=== PATIENT | male | born 1995 | race Two or more races ===

== ENCOUNTER 2025-06-26 12:28 | Inpatient (IN) | payer MEDICAID, OTHER ==
[~2025-06-26] VITALS: Ht 175.3 cm; Wt 82.6 kg
--- NOTE | 2025-06-26 12:37 | ED.PDOC ---
History of Present Illness HPI Comments 37-year-old male came to the ER stating that he has been having nausea vomiting since this morning ever since he smoke marijuana. He does use marijuana daily. He denies any past medical surgical history. He denies use of alcohol. Denies any other symptoms. Chief Complaint: Nausea/Vomiting Time Seen by MD: 12:29 Reviewed Notes: Nurses Notes, Medications, Allergies Allergies: Coded Allergies: NO KNOWN ALLERGIES (Unverified , 06/26/25) Information Source: Patient Mode of Arrival: Wheelchair Severity: Moderate Timing: Hours Duration: Since onset Past Medical History PAST MEDICAL HISTORY: Denies Surgical History: Denies all surgeries Social History Smoker: Non-Smoker Alcohol: Denies ETOH Use Drugs: Marijuana Constitutional: denies: chills, diaphoresis, fatigue, fever, malaise, sweats, weakness, others EENTM: denies: blurred vision, double vision, ear bleeding, ear discharge, ear drainage, ear pain, ear ringing, eye pain, eye redness, hearing loss, mouth pain, mouth swelling, nasal discharge, nose bleeding, nose congestion, nose pain, photophobia, tearing, throat pain, throat swelling, voice changes, others Respiratory: denies: cough, hemoptysis, orthopnea, SOB at rest, shortness of breath, SOB with excertion, stridor, wheezing, others Cardiovascular: denies: chest pain, dizzy spells, diaphoresis, Dyspnea on exertion, edema, irregular heart beat, left arm pain, lightheadedness, palpitations, PND, syncope, others Gastrointestinal: reports: nausea, vomiting; denies: abdomen distended, abdominal pain, blood streaked bowels, constipated, diarrhea, dysphagia, difficulty swallowing, hematemesis, melena, poor appetite, poor fluid intake, rectal bleeding, rectal pain, others Genitourinary: denies: burning, dysuria, flank pain, frequency, hematuria, incontinence, penile discharge, penile sore, pain, testicle pain, testicle s welling, urgency, others Neurological: denies: dizziness, fainting, headache, left sided numbness, left sided weakness, numbness, paresthesia, pre-existing deficit, right sided numbness, right sided weakness, seizure, speech problems, tingling, tremors, weakness, others Musculoskeletal: denies: back pain, gout, joint pain, joint swelling, muscle pain, muscle stiffness, neck pain, others Integumetry: denies: bruises, change in color, change in hair/nails, dryness, laceration, lesions, lumps, rash, wounds, others Allergic/Immunocompromised: denies: Difficulty Healing, Frequent Infections, Hives, Itching, others Hematologic/Lymphatic: denies: anemia, blood clots, easy bleeding, easy bruising, swollen glands, others Endocrine: denies: excessive hunger, excessive sweating, excessive thirst, excessive urination, flushing, intolerance to cold, intolerance to heat, unexplained weight gain, unexplained weight loss, others Psychiatric: denies: anxiety, bipolar disorder, depression, hopeless, panic disorder, schizophrenia, sleepless, suicidal, others Physical Exam General Appearance: Moderate Distress HEENT: Normal ENT Inspection, Pharynx Normal, TMs Normal Neck: Full Range of Motion, Non-Tender, Normal, Normal Inspection Respiratory: Chest Non-Tender, Lungs Clear, No Accessory Muscle Use, No Respiratory Distress, Normal Breath Sounds Cardiovascular: No Edema, No JVD, No Murmur, No Gallop, Normal Peripheral Pulses, Regular Rate/Rhythm Breast Exam: Deferred Gastrointestinal: No Organomegaly, Non Tender, No Pulsatile Mass, Normal Bowel Sounds, Soft Genitalia: Deferred Pelvic: Deferred Rectal: Deferred Extremities: No calf tenderness, Normal capillary refill, Normal inspection, Normal range of motion, Non-tender, No pedal edema Musculoskeletal : Apperance: Normal Neurologic: Alert, farm facility manager II-XII nml as Tested, No Motor Deficits, Normal Affect, Normal Mood, No Sensory Deficits Cerebellar Function: Normal Reflexes: Normal Skin: Dry, Normal Color, Warm Peripheral Pulses: 3+ Radial (R), 3+ Radial (L) Lymphatic: No Adenopathy Was a procedure done? Was a procedure done?: No Differential Dx Considerations may include: Marijuana induced Electrolyte imbalance X-Ray, Labs, Meds, VS Vital Signs Date Time Temp Pulse Resp B/P (MAP) Pulse Ox O2 Delivery O2 Flow Rate FiO2 06/26/25 12:29 97.7 88 24 151/56 98 97.7 Current Medications Medications (Trade) Dose Ordered Sig/Nayan Route Start Time Stop Time Status Last Admin Sodium Chloride 1,000 ml @ 1,000 mls/hr Q1H ONCE IV 06/26/25 12:45 06/26/25 13:44 DC 06/26/25 13:40 Vitals stable. Answering all questions. Marijuana induced. Vitals stable. No leg swelling. Moving all extremities. Pristine neurological exam. Establish intravenous access. Was given fluids. Was given Zofran. Was given morphine. Was given Compazine. Counseled patient on effects of smoking marijuana. Patient had a seizure few hours after being in the ER. Was given Keppra. Continue monitoring. Time of 1ST Reevaluation: 12:35 Reevaluation 1ST: Unchanged Patient Education/Counseling: Diagnosis, Treatment, Prognosis, Need For Follow Up Family Education/Counseling: No Family Present SEPSIS Sepsis Screen Physician Orders Basic Metabolic Panel (06/26/25 12:32) Drug Screen (06/26/25 12:32) Complete Blood Count (06/26/25 14:38) Sodium Chloride 0.9% (06/26/25 14:45) Sodium Chloride 0.9% (06/26/25 14:45) Vital Signs Date Time Temp Pulse Resp B/P (MAP) Pulse Ox O2 Delivery O2 Flow Rate FiO2 06/26/25 12:29 97.7 88 24 151/56 98 97.7 Medications Medications Dose Ordered Sig/Nayan Route Start Time Stop Time Status Last Admin Dose Admin Sodium Chloride 1,000 ml @ 1,000 mls/hr Q1H ONCE IV 06/26/25 12:45 06/26/25 13:44 DC 06/26/25 13:40 Departure 1 Departure Time of Disposition: 12:36 Impression: Primary Impression: Seizure Additional Impression: Cannabis abuse Disposition: 01 HOME / SELF CARE / HOMELESS Condition: Good Discharged With: Self Critical Care Note Critical Care Time?: Yes (90 min-critical care time only) Critical care comment: Had a seizure in the ER Stability Stability form required: No Heart Score Heart Score: Heart Score Response (Comments) Value History N/A 0 EKG N/A 0 Age N/A 0 Risk Factors N/A 0 Troponin N/A 0 Total 0 LU CARCAMO MD Jun 26, 2025 12:37
[2025-06-26] MEDS: SODIUM CHLORIDE 0.9% 1,000 ML IV ONE ×4 (13:40→17:45)
[2025-06-26] MEDS: LORazepam 2MG/ML-1ML VIAL ONE ×2 (14:37→14:42)
[2025-06-26] MEDS: LORazepam 2MG/ML-1ML VIAL IM ONE ×2 (14:42→15:59)
[2025-06-26] MEDS: MIDAZOLAM HCL 5 MG/ML-1ML VIAL IM ONE (15:29)
[2025-06-26] MEDS: MIDAZOLAM HCL 5 MG/ML-1ML VIAL ONE (15:29)
[2025-06-26] MEDS: MORPHINE SULFATE 4 MG/ML SYR/VIAL IV ONE (15:58)
[2025-06-26] MEDS: ONDANSETRON HCL 4 MG/2 ML VIAL IV ONE (15:59)
[2025-06-26] MEDS: levETIRAcetam 1000 mg/100ml 100 ML IV ONE (15:59)
[2025-06-26] MEDS ORDERED: HALOPERIDOL LACTATE 5 MG/ML INJ VIAL IM PRN (17:30)
[2025-06-26 19:03] LABS: Hematocrit 50.3 % (41.0-53.0); Hemoglobin 16.9 g/dL (13.5-17.5); Mean Corpuscular Hemoglobin 30.1 pg (28.0-32.0); Mean Corpuscular Volume 89.8 fL (80.0-100.0); Nucleated Red Blood Cells % 0.1 %
[2025-06-26 19:20] LABS: Potassium 4.1 mmol/L (3.5-5.1); Sodium 142 mmol/L (136-145)
[2025-06-26 19:21] LABS: Anion Gap 12 (5-15); Calcium 9.1 mg/dL (8.7-10.4); Carbon Dioxide 22 mmol/L (20-31)
[2025-06-26 19:26] LABS: BUN/Creatinine Ratio 4.3 (10.0-20.0); Glucose 79 mg/dL (74-106)
[2025-06-26 19:28] LABS: Blood Urea Nitrogen 5 mg/dL (9-23); Chloride 108 mmol/L (98-107)
[2025-06-26 20:24] LABS: Cannabinoid Screen, Urine Pos (NEGATIVE); Opiate Scree,Urine Neg (NEGATIVE)
[2025-06-26 20:26] LABS: Amphetamine Screen, Urine Neg (NEGATIVE); Barbiturate Scree,Urine Neg (NEGATIVE); Benzodiazephine Screen, Urine Pos (NEGATIVE); Cocaine Screen, Urine Neg (NEGATIVE); Phencyclidine Screen, Urine Neg (NEGATIVE)
[2025-06-26 20:27] LABS: Urine Protein, UAD Negative (Negative)
[2025-06-26] MEDS: levETIRAcetam 500 MG TAB PO ONE (21:56)
[2025-06-26] MEDS ORDERED: ONDANSETRON HCL 4 MG/2 ML VIAL IV PRN (22:15)
[2025-06-26] MEDS ORDERED: ACETAMINOPHEN 325 MG TAB PO PRN (22:15)
[2025-06-26] MEDS ORDERED: MORPHINE SULFATE INJ 2 MG/ml SYRG IV PRN ×2 (22:15→23:30)
[2025-06-26] MEDS ORDERED: DOCUSATE SOD 100 MG CAP PO PRN (22:15)
--- NOTE | 2025-06-26 23:28 | DVHHP2 ---
History of Present Illness Reason for Visit: Seizure History of Present Illness The patient is a 37-year-old male with past medical history of seizure who presented to [facility] ED with complaint of seizure. Patient has been having seizure associated with nausea and vomiting, getting worse that prompted this visit. Patient was seen and evaluated in the ED, laboratory data shows WBC 16.5, platelets 301, sodium 142, potassium 4.1, BUN five, creatinine 1.16, glucose 79, calcium 9.1. Head CT results pending. Patient was started on IV Keppra, please see medication orders section in the computer. On my assessment, patient denied chest pain, no headache, no dizziness, no shortness of breath, no nausea, no vomiting, no fever, no chills. Patient was admitted for further evaluation and medical management. Past Medical History Seizure Past Surgical History Denies all surgeries Family History Reviewed, noncontributory to the management of this case. Past Social History Patient lives at home, denies smoking, no alcohol, uses marijuana. Review of Systems Constitutional: Yes: Weakness; No: Fever, Chills, Sweats, Malaise, Other Eyes: No: Pain, Vision change, Conjunctivae inflammation, Eyelid inflammation, Other, Redness ENT: No: Ear pain, Ear discharge, Nose pain, Nose discharge, Nose congestion, Mouth pain, Mouth swelling, Throat pain, Throat swelling, Other Respiratory: No: Cough, Dry, Shortness of breath, SOB with excertion, Wheezing, Hemoptysis, Pleuritic Pain, Sputum, Wheezing, Other Cardiovascular: No: Chest Pain, Palpitations, Orthopnea, Paroxysmal Noc. Dyspnea, Edema, Lt Headedness, Other Gastrointestinal: Nausea, Vomiting; No: Abdominal Pain, Diarrhea, Constipation, Melena, Hematochezia, Other Genitourinary: No Dysuria, No Frequency, No Incontinence, No Hematuria, No R etention, No Other Musculoskeletal: No: other, neck pain, shoulder pain, arm pain, back pain, hand pain, leg pain, foot pain Skin: No: Rash, Lesions, Jaundice, Bruising, Other Neurological: Seizures; No: Weakness, Numbness, Incoordination, Change in speech, Confusion, Other Allergies: Coded Allergies: NO KNOWN ALLERGIES (Unverified , 06/26/25) Medications Current Medications Medications Dose Ordered Sig/Nayan Route Start Time Stop Time Status Last Admin Dose Admin Lorazepam 2 mg Q2HPRN PRN IV 06/26/25 17:30 Haloperidol Lactate 5 mg Q6HPRN PRN IM 06/26/25 17:30 Levetiracetam 100 ml @ 400 mls/hr BID IV 06/27/25 10:00 Sodium Chloride 10 ml Q8HR IV 06/27/25 06:00 Acetaminophen/ Hydrocodone Bitart 1 tab Q4HP PRN PO 06/26/25 22:15 Ondansetron HCl 4 mg Q4HP PRN IV 06/26/25 22:15 Docusate Sodium 100 mg BIDPRN PRN PO 06/26/25 22:15 Acetaminophen 650 mg Q6HP PRN PO 06/26/25 22:15 Morphine Sulfate 2 mg Q4HPRN PRN IV 06/26/25 22:15 Exam Vital Signs Vital Signs Date Time Temp Pulse Resp B/P (MAP) Pulse Ox O2 Delivery O2 Flow Rate FiO2 06/26/25 20:00 97 06/26/25 18:00 13 157/58 (91) 93 06/26/25 13:30 Room Air* 0 21 06/26/25 13:30 97.8 97.8 General Appearance: Alert, Oriented X3, Cooperative, No acute distress HEENT: Atraumatic, PERRLA, EOMI, Mucous membr. moist/pink Respiratory: Clear to auscultation, Normal air movement Cardiovascular: Regular rate, Normal S1, Normal S2, No murmurs Abdominal: Normal bowel sounds, Soft, No tenderness, No hepatospenomegaly, No masses Extremities: No clubbing, No cyanosis, No edema, Normal pulses, No tenderness/swelling Skin: No rashes, No breakdown, No significant lesion Neuro: Normal speech, Normal tone, Sensation intact, Cranial nerves 3-12 NL, Reflexes 2+, Other (Generalized weakness) Psych/Mental Status: Mental status NL, Mood NL Labs/Xrays Labs Test 06/26/25 19:51 06/26/25 18:30 Range/Units Urine Color Colorless Yellow Urine Clarity Clear Clear Urine pH 5.0 5.0-9.0 Urine Specific Glynn 1.007 1.001-1.035 Urine Protein Negative Negative Urine Ketones Negative Negative Urine Blood Negative Negative /uL Urine Nitrite Negative Negative Urine Bilirubin Negative Negative Urine Urobilinogen Normal Negative mg/dL Urine Leukocyte Esterase Negative Negative /uL Urine RBC <1 0 - 3 /hpf Urine Microscopic WBC < 1 0-3 /HPF Urine Squamous Epithelial Cells Few <5 /hpf Urine Bacteria None seen None Seen /hpf Urine Glucose Normal Normal mg/dL Urine Opiates Screen Neg NEGATIVE Urine Fentanyl Screen Neg NEGATIVE Urine Barbiturates Screen Neg NEGATIVE Urine Phencyclidine Screen Neg NEGATIVE Urine Amphetamines Screen Neg NEGATIVE Urine Benzodiazepines Screen Pos NEGATIVE Urine Cocaine Screen Neg NEGATIVE Urine Cannabinoids Screen Pos NEGATIVE White Blood Count 16.5 H 4.4-10.8 10^3/uL Red Blood Count 5.59 4.5-5.90 10^6/uL Hemoglobin 16.9 13.5-17.5 g/dL Hematocrit 50.3 41.0-53.0 % Mean Corpuscular Volume 89.8 80.0-100.0 fL Mean Corpuscular Hemoglobin 30.1 28.0-32.0 pg Mean Corpuscular Hemoglobin Concent 33.5 32.0-36.0 g/dL Red Cell Distribution Width 14.5 H 11.8-14.3 % Platelet Count 301 140-450 10^3/uL Mean Platelet Volume 7.6 6.9-10.8 fL Neutrophils (%) (Auto) 89.9 H 37.0-80.0 % Lymphocytes (%) (Auto) 4.1 L 10.0-50.0 % Monocytes (%) (Auto) 5.5 0.0-12.0 % Eosinophils (%) (Auto) 0.1 0.0-7.0 % Basophils (%) (Auto) 0.4 0.0-2.0 % Neutrophils # (Auto) 14.9 H 1.6-8.6 10 ^3/uL Lymphocytes # (Auto) 0.7 0.4-5.4 10 ^3/uL Monocytes # (Auto) 0.9 0-1.3 10 ^3/uL Eosinophils # (Auto) 0 0-0.8 10 ^3/uL Basophils # (Auto) 0.1 0-0.2 10 ^3/uL Nucleated Red Blood Cells 0.1 % Sodium Level 142 136-145 mmol/L Potassium Level 4.1 3.5-5.1 mmol/L Chloride Level 108 H 98-107 mmol/L Carbon Dioxide Level 22 20-31 mmol/L Anion Gap 12 5-15 Blood Urea Nitrogen 5 L 9-23 mg/dL Creatinine 1.16 0.700-1.30 mg/dL Glomerular Filtration Rate Calc 84 >90 mL/min BUN/Creatinine Ratio 4.3 L 10.0-20.0 Serum Glucose 79 74-106 mg/dL Calcium Level 9.1 8.7-10.4 mg/dL SEPSIS Sepsis Screen Date sepsis recognized/suspect: Jun 26, 2025 Time Sepsis recognized/suspect: 1228 Recent Procedure: No On Antibiotic Therapy: No Respiratory Rate >20: Yes Heart Rate >90: No Temp<36 C (96.8 F) or >38.3 C: No SBP <90 or MAP <65 mmHG: No New Acute Mental Status Change: No Is the patient on CPAP, BIPAP,: No Physician Orders Electrocardigram (06/26/25 15:56) Lorazepam 2mg/Ml Inj (Ativan Inj) (06/26/25 17:30) Haloperidol Lactate Injection (Haldol) (06/26/25 17:30) * Neurology Consult (06/26/25 17:27) Mat Worker (06/26/25 ) Levetiracetam 1000 Mg/100ml (Levetiracet (06/27/25 10:00) Allergies (06/26/25 22:12) Code Status (06/26/25 22:12) Sodium Chloride Lock (Saline Lock Ns) (06/27/25 06:00) Oxygen Per Hour (06/26/25 22:12) Hydrocodone-Acet 5/325mg Tab ([place] 5/32 (06/26/25 22:15) Ondansetron Hcl (Zofran) (06/26/25 22:15) Docusate Sodium Capsule (Colace Capsule) (06/26/25 22:15) Fall Risk Precautions In Place QSHIFT (06/26/25 22:12) Complete Blood Count (06/27/25 04:00) Comprehensive Metabolic Panel (06/27/25 04:00) Cardiac Diet-2gna,Lofat,Lochol (06/27/25 Breakfast) Condition: Serious (06/26/25 22:12) Acetaminophen Tablet (Tylenol Tablet) (06/26/25 22:15) Maintain Bed Rest (06/26/25 22:12) Morphine Sulfate Injection (06/26/25 22:15) Sequential Compression Device (06/26/25 ) Admit (06/26/25 23:27) Nitroglycerin Sublingual (Ntrostat Subli (06/26/25 23:30) Morphine Sulfate Injection (06/26/25 23:30) Vital Signs Date Time Temp Pulse Resp B/P (MAP) Pulse Ox O2 Delivery O2 Flow Rate FiO2 06/26/25 20:00 97 06/26/25 18:00 100 13 157/58 (91) 93 06/26/25 16:28 98 19 134/84 06/26/25 16:00 95 15 134/84 (101) 100 06/26/25 15:58 96 17 134/84 06/26/25 15:56 100 Laboratory Tests Test 06/26/25 18:30 White Blood Count 16.5 10^3/uL (4.4-10.8) H Medications Medications Dose Ordered Sig/Nayan Route Start Time Stop Time Status Last Admin Dose Admin Levetiracetam 100 ml @ 400 mls/hr ONCE ONCE IV 06/26/25 14:45 06/26/25 14:59 DC 06/26/25 15:59 400 MLS/HR Levetiracetam 1,000 mg BID ONCE PO 06/26/25 22:00 06/26/25 22:01 DC 06/26/25 21:56 1,000 MG Lorazepam 2 mg ONCE ONCE IM 06/26/25 14:42 06/26/25 15:36 DC 06/26/25 14:42 2 MG Lorazepam 2 mg ONCE ONCE IM 06/26/25 15:30 06/26/25 15:31 DC 06/26/25 15:59 2 MG Midazolam HCl 5 mg ONCE ONCE IM 06/26/25 15:29 06/26/25 16:03 DC 06/26/25 15:29 5 MG Morphine Sulfate 4 mg ONCE ONCE IV 06/26/25 12:45 06/26/25 12:46 DC 06/26/25 15:58 4 MG Ondansetron HCl 4 mg ONCE ONCE IV 06/26/25 12:45 06/26/25 12:46 DC 06/26/25 15:59 4 MG Sodium Chloride 1,000 ml @ 150 mls/hr Q6H40M ONCE IV 06/26/25 14:45 06/26/25 21:24 DC 06/26/25 17:45 150 MLS/HR Sodium Chloride 1,000 ml @ 1,000 mls/hr Q1H ONCE IV 06/26/25 12:45 06/26/25 13:44 DC 06/26/25 13:40 1,000 MLS/HR Sodium Chloride 1,000 ml @ 1,000 mls/hr Q1H ONCE IV 06/26/25 12:45 06/26/25 13:44 DC 06/26/25 16:01 1,000 MLS/HR Sodium Chloride 1,000 ml @ 1,000 mls/hr Q1H ONCE IV 06/26/25 14:45 06/26/25 15:44 DC 06/26/25 16:00 1,000 MLS/HR Assessment/Plan Assessment/Plan Seizure disorder Cannabis abuse Leukocytosis, unspecified Intractable nausea and vomiting Generalized weakness Plan 1. Admit to telemetry unit 2. Breathing treatment 3. Pain control management 4. IV antibiotic management 5. Management of fluids and electrolytes 6. Consultation for neurology 7. Diagnostic test head CT 8. DVT prophylaxis-on SCDs 9. Repeat labs CBC, CMP in a.m. 10. Home medication reviewed and reconciled 11. Continue with current medical management 12. Treatment plan discussed with patient and RN. Patient verbalized understanding. Plan discussed with: Patient, Other (RN) My Orders Orders - VAHID BRYANT DNP Procedure Category Date Status Time Levetiracetam 1000 PHA 06/27/25 In Process Mg/100ml (Levetiracet 10:00 Allergies MARY 06/26/25 In Process 22:12 Code Status CODE 06/26/25 Transmitted 22:12 Sodium Chloride Lock PHA 06/27/25 In Process (Saline Lock Ns) 06:00 Oxygen Per Hour RT 06/26/25 Transmitted 22:12 Hydrocodone-Acet PHA 06/26/25 In Process 5/325mg Tab ([place] 22:15 Ondansetron Hcl PHA 06/26/25 In Process (Zofran) 22:15 Docusate Sodium PHA 06/26/25 In Process Capsule (Colace 22:15 Fall Risk Precautions MARY 06/26/[address] 22:12 Complete Blood Count LAB 06/27/25 Verified 04:00 Comprehensive LAB 06/27/25 Verified Metabolic Panel 04:00 Cardiac DIET 06/27/25 Transmitted Diet-2gna,Lofat,Lochol Breakfast Condition: Serious MARY 06/26/25 In Process 22:12 Acetaminophen Tablet PHA 06/26/25 In Process (Tylenol Tablet) 22:15 Maintain Bed Rest MARY 06/26/25 In Process 22:12 Morphine Sulfate PHA 06/26/25 In Process Injection 22:15 Sequential MARY 06/26/25 In Process Compression Device Admit ADMIT 06/26/25 Verified 23:27 Nitroglycerin PHA 06/26/25 Verified Sublingual (Ntrostat 23:30 Morphine Sulfate PHA 06/26/25 Verified Injection 23:30 Problem List: (1) Seizure disorder (2) Cannabis abuse (3) Leukocytosis, unspecified (4) Intractable nausea and vomiting (5) Generalized weakness Date of Service: Jun 26, 2025 Billing Provider: VAHID BRYANT DNP Common Visit Codes: [id number] INP/OBS CARE (HIGH) VAHID BRYANT DNP Jun 26, 2025 23:28
[2025-06-26] MEDS ORDERED: NITROGLYCERIN 0.4 MG SL TAB SL PRN (23:30)
[2025-06-27] MEDS: LORazepam 2MG/ML-1ML VIAL IV PRN (04:30)
--- NOTE | 2025-06-27 05:17 | DVH ---
EXAM: CT HEAD WITHOUT CONTRAST INDICATION: Seizure TECHNIQUE: CT of the head without intravenous contrast. Radiation Dose : 1. Head: CT Dose: CTDI volume is 57.21 mGy. Dose-length product is 1127.42 mGy*cm The dose indicators for CT are the volume Computed Tomography (CT) Dose Index (CTDIvol) and the Dose Length Product (DLP), and are measured in units of mGy and mGy-cm, respectively. These indicators are not patient dose, but values generated from the CT scanner acquisition factors. The report includes radiation exposure data for exposures received during this examination. COMPARISON: None FINDINGS: There is no evidence of acute intracranial hemorrhage, extra-axial collection, mass effect, midline s hift, herniation or hydrocephalus. The ventricles, sulci and cisterns are age appropriate. The desouza-white differentiation is intact. The visualized paranasal sinuses are clear. Minimal partial opacification of lateral left mastoid air cells. Right mastoid air cells are clear. The surrounding soft tissues and osseous structures are unremarkable. IMPRESSION: 1. No acute intracranial abnormality. 2. Minimal partial opacification of lateral left mastoid air cells. Radiation optimization: All CT scans at this facility use at least one of these dose optimization cat hniques: automated exposure control mA and/or kV adjustment per patient size (includes targeted exam s where dose is matched to clinical indication) or iterative reconstruction.
[2025-06-27] MEDS: SODIUM CHLOR 0.9% PF (SALINE LOCK) 10ML VIAL/SYR IV SCH (07:02)
[2025-06-27 07:50] VITALS: PULSE 91; RESP 18; O2SAT 96
[2025-06-27] MEDS ORDERED: DEXTROSE (50%) 50ML SYRG IV PRN (08:00)
[2025-06-27] MEDS: HYDROcodone-ACET 5/325MG TAB PO PRN (10:11)
[2025-06-27] MEDS: levETIRAcetam 1000 mg/100ml 100 ML IV SCH (10:11)
[2025-06-27] MEDS ORDERED: VANCOMYCIN PER PHARMACY 0 MG IV SCH (12:00)
[2025-06-27 13:20] VITALS: PULSE 96; RESP 16; O2SAT 96
[2025-06-27] MEDS: cefTRIAXone 1GM/50ML D5W 50 ML IV ONE (13:27)
[2025-06-27] MEDS: ACCU-CHEK COMFORT CURVE STRIP VI SCH (13:39)
[2025-06-27] MEDS: InsuLIN REG 1unit/0.01ml Soln (100units/ml) SC SCH (13:40)
[2025-06-27] MEDS: VANCOMYCIN 1GM/250ML IV SCH (14:30)
[2025-06-27 16:02] VITALS: BP 140/91; PULSE 91; RESP 19; TEMP 98.3; O2SAT 98
[2025-06-27 16:10] VITALS: BP 140/91; PULSE 91; RESP 19; TEMP 98.3; O2SAT 98
--- NOTE | 2025-06-27 16:46 | DVHPNRES ---
Progress Note Date Seen: Jun 27, 2025 Resident Creating Document: JOSE HERNANDEZ RESIDENT Has the PT tested + for MRSA If YES, has PT been informed?: No Medical Necessity Reason Pt with a Central, PICC or Fol: No Objective vital signs Vital Sign Date Time Temp Pulse Resp B/P (MAP) Pulse Ox O2 Delivery O2 Flow Rate FiO2 06/27/25 14:00 96 16 102/63 (76) 99 06/27/25 13:20 Room Air* 0 21 06/27/25 09:00 97.7 97.7 Total Intake and Output 06/26/25 06/26/25 06/27/25 15:00 23:00 07:00 Intake Total 1000 ml 2100 ml 1000 ml Balance 1000 ml 2100 ml 1000 ml medications Current Medications Medications Dose Ordered Sig/Nayan Route Start Time Stop Time Status Last Admin Dose Admin Lorazepam 2 mg Q2HPRN PRN IV 06/26/25 17:30 06/27/25 04:30 2 MG Haloperidol Lactate 5 mg Q6HPRN PRN IM 06/26/25 17:30 Levetiracetam 100 ml @ 400 mls/hr BID IV 06/27/25 10:00 06/27/25 10:11 400 MLS/HR Sodium Chloride 10 ml Q8HR IV 06/27/25 06:00 06/27/25 14:04 10 ML Acetaminophen/ Hydrocodone Bitart 1 tab Q4HP PRN PO 06/26/25 22:15 06/27/25 10:11 1 TAB Ondansetron HCl 4 mg Q4HP PRN IV 06/26/25 22:15 Docusate Sodium 100 mg BIDPRN PRN PO 06/26/25 22:15 Acetaminophen 650 mg Q6HP PRN PO 06/26/25 22:15 Morphine Sulfate 2 mg Q4HPRN PRN IV 06/26/25 22:15 Nitroglycerin 0.4 mg Q5MINP PRN SL 06/26/25 23:30 Morphine Sulfate 2 mg Q30M PRN IV 06/26/25 23:30 Diagnostic Test (Pha) 1 strip ACHS 06/27/25 11:30 06/27/25 13:39 1 STRIP Insulin Human Regular ACHS SC 06/27/25 11:30 Dextrose 50 ml UD PRN IV 06/27/25 08:00 Vancomycin HCl 0 ml @ 0 mls/hr UD IV 06/27/25 12:00 Ceftriaxone Sodium 50 ml @ 100 mls/hr DAILY@09 IV 06/28/25 09:00 laboratory and microbiology Laboratory Tests 06/26/25 18:30 Test 06/26/25 18:30 Range/Units Serum Glucose 79 74-106 mg/dL My Orders My Orders Orders - JOSE HERNANDEZ RESIDENT Procedure Category Date Status Time Lactic Acid W/ Reflex LAB 06/27/25 Transmitted Order 16:36 Creatine Kinase LAB 06/27/25 Transmitted 16:36 Levetiracetam (Keppra) LAB 06/27/25 Transmitted 16:36 Calcitriol(125 Di-Oh LAB 06/27/25 Transmitted Vit D) 16:36 Vitamin B12 LAB 06/27/25 Transmitted 16:36 Thyroid Stimulating LAB 06/27/25 Transmitted Hormone 16:36 PTPTT LAB 06/27/25 Transmitted 16:36 Magnesium LAB 06/27/25 Transmitted 16:36 Hemoglobin A1c LAB 06/27/25 Transmitted 16:36 Lipid Panel LAB 06/27/25 Transmitted 16:36 Hepatic Panel LAB 06/27/25 Transmitted 16:36 JOSE HERNANDEZ RESIDENT Jun 27, 2025 16:46
--- NOTE | 2025-06-27 17:01 | DVHPNRES ---
Progress Note Date Seen: Jun 27, 2025 Resident Creating Document: JOSE HERNANDEZ RESIDENT Has the PT tested + for MRSA If YES, has PT been informed?: No Medical Necessity Reason Pt with a Central, PICC or Fol: No Subjective Review of Systems Patient is a 37-year-old male with past medical history of epilepsy who presented to the ED with chief complaints of seizure, patient has had a seizure with nausea and vomiting before getting admitted and had 2 episodes of seizure in the hospital. Patient was started on IV Keppra and given Ativan which stopped the seizure. Patient was confused after the seizure and did not know where he was but was oriented to person. Surgical history: Denies Personal history: vapes, smokes marijuana, states he had drug use 2 months ago 06/27 Patient seen in the ER. He is alert to person, time, but not to place, was confused after seizure, patient denies any vomiting, nausea, dizziness, headaches, diarrhea, constipation, chest pain, shortness of breath. Patient denies any neck stiffness, is placed in isolation for ruling out meningitis. Radiology was consulted for possible lumbar puncture. The vancomycin was started. Head CT showed No acute intracranial abnormality. neuro checks q.4 hours. surgery was consulted, pending. Constitutional: Denies weight loss, fever and chills. HEENT: Denies changes in vision and hearing. Respiratory: Denies shortness of breath and cough Cardiovascular: Denies chest discomfort or palpitations GI: Mild abdominal distention, reports improvement on abdominal discomfort. : Denies dysuria and urinary frequency. Musculoskeletal: Denies myalgias and joint pain Skin: Denies rash and pruritus. Neurological: Denies dizziness, headache, vision or hearing problems Objective vital signs Vital Sign Date Time Temp Pulse Resp B/P (MAP) Pulse Ox O2 Delivery O2 Flow Rate FiO2 06/27/25 14:00 96 16 102/63 (76) 99 06/27/25 13:20 Room Air* 0 21 06/27/25 09:00 97.7 97.7 Total Intake and Output 06/26/25 06/26/25 06/27/25 15:00 23:00 07:00 Intake Total 1000 ml 2100 ml 1000 ml Balance 1000 ml 2100 ml 1000 ml medications Current Medications Medications Dose Ordered Sig/Nayan Route Start Time Stop Time Status Last Admin Dose Admin Lorazepam 2 mg Q2HPRN PRN IV 06/26/25 17:30 06/27/25 04:30 2 MG Haloperidol Lactate 5 mg Q6HPRN PRN IM 06/26/25 17:30 Levetiracetam 100 ml @ 400 mls/hr BID IV 06/27/25 10:00 06/27/25 10:11 400 MLS/HR Sodium Chloride 10 ml Q8HR IV 06/27/25 06:00 06/27/25 14:04 10 ML Acetaminophen/ Hydrocodone Bitart 1 tab Q4HP PRN PO 06/26/25 22:15 06/27/25 10:11 1 TAB Ondansetron HCl 4 mg Q4HP PRN IV 06/26/25 22:15 Docusate Sodium 100 mg BIDPRN PRN PO 06/26/25 22:15 Acetaminophen 650 mg Q6HP PRN PO 06/26/25 22:15 Morphine Sulfate 2 mg Q4HPRN PRN IV 06/26/25 22:15 Nitroglycerin 0.4 mg Q5MINP PRN SL 06/26/25 23:30 Morphine Sulfate 2 mg Q30M PRN IV 06/26/25 23:30 Diagnostic Test (Pha) 1 strip ACHS 06/27/25 11:30 06/27/25 13:39 1 STRIP Insulin Human Regular ACHS SC 06/27/25 11:30 Dextrose 50 ml UD PRN IV 06/27/25 08:00 Vancomycin HCl 0 ml @ 0 mls/hr UD IV 06/27/25 12:00 Ceftriaxone Sodium 50 ml @ 100 mls/hr DAILY@09 IV 06/28/25 09:00 Examination General: Patient alert and oriented in person,time, not place. Patient following commands. HEENT: Normocephalic, atraumatic, moist mucous membranes Respiratory/pulmonary: Clear lungs bilaterally, vesicular murmurs present in almost all lung cage, no associated crackles or wheezes. Cardiovascular: Normal heart sounds S1 and S2 with no associated murmurs Abdomen: Abdomen nondistended, there is no pain to palpation in any of the abdominal quadrants, no palpable masses. Extremities: There is no peripheral edema present at the lower extremities. Peripheral Pulses: 3+ Radial (R). 3+ Radial (L). 3+ Dorsalis pedis (R). 3+ Dorsalis pedis(L) Skin: No rashes or pruritus, there is no sacral edema present at this time. Neurological: Intact cranial nerves with no focal neurologic deficits, laboratory and microbiology Laboratory Tests 06/26/25 18:30 Test 06/26/25 18:30 Range/Units Serum Glucose 79 74-106 mg/dL Labs and/or images reviewed: Labs reviewed by me, Image(s) reviewed by me Problem List/Assessment/Plan Problem List/Assessment/Plan # Seizure X 2 episodes # history of epileptic disorder # SIRS due to Acute Seizures # ALOC due to Postictal state # rule out metabolic causes # rule out meningitis # suspected noncompliance - head CT showed no acute intracranial pathology - neurology consulted, pending - IR was consulted for possible lumbar puncture - Keppra levels were unable to check because given stat in ED - Ativan 2 mg - Keppra b.i.d. IV - droplet precautions, isolation of patient done - neuro checks q.4 - vancomycin IV - Ceftriaxone IV # Rhabdomyolysis - given fluids 125 NS - repeat CK in the morning # polysubstance abuse disorder -patient counseled on cessation of marijuana, vaping for 13 minutes Goals of care addressed with the patient for more than 27 minutes: Full code status Case discussed with Dr. Hill , patient and nurse if seizure free for 48 hours possible discharge tomorrow Plan discussed with: Patient My Orders My Orders Orders - JOSE HERNANDEZ Procedure Category Date Status Time Lactic Acid W/ Reflex LAB 06/27/25 Transmitted Order 16:36 Creatine Kinase LAB 06/27/25 Transmitted 16:36 Levetiracetam (Keppra) LAB 06/27/25 Transmitted 16:36 Calcitriol(125 Di-Oh LAB 06/27/25 Transmitted Vit D) 16:36 Vitamin B12 LAB 06/27/25 Transmitted 16:36 Thyroid Stimulating LAB 06/27/25 Transmitted Hormone 16:36 PTPTT LAB 06/27/25 Transmitted 16:36 Magnesium LAB 06/27/25 Transmitted 16:36 Hemoglobin A1c LAB 06/27/25 Transmitted 16:36 Lipid Panel LAB 06/27/25 Transmitted 16:36 Hepatic Panel LAB 06/27/25 Transmitted 16:36 Date of Service: Jun 27, 2025 Billing Provider: AIMEE DE LA ROSA MD Common Visit Codes: [id number] INP/OBS CARE(HIGH) SRIRAMJOSE [place] Jun 27, 2025 17:01 AIMEE DE LA ROSA MD Jun 29, 2025 17:01
[2025-06-27] MEDS ORDERED: PHEN1CAP38 PO (18:27)
[2025-06-27] MEDS ORDERED: LEVE500T40 PO (18:27)
[2025-06-27 18:39] LABS: Alanine Aminotransferase 24.0 U/L (7-40); Alkaline Phosphatase 52.0 U/L (46-116); Bilirubin, Direct 0.2 mg/dL (<0.3); Bilirubin, Total 0.6 mg/dL (0.2-1.0); Cholesterol 133.0 mg/dL (< 200); HDL Cholesterol 46.0 mg/dL (40-59); Magnesium 2.4 mg/dL (1.6-2.6); Total Protein 7.1 g/dL (5.7-8.2); Triglycerides 82.0 mg/dL (< 150)
[2025-06-27 18:49] LABS: Albumin 4.8 g/dL (3.2-4.8)
[2025-06-27 18:51] LABS: Creatine Kinase IFCC 1809.0 U/L (46-171)
[2025-06-27 19:04] LABS: INR 1.03 (0.9-1.15); Partial Thromboplastin Time 26.2 SEC (24.5-34.5); Prothrombin Time 10.9 sec (9.3-11.8)
[2025-06-27] MEDS: SODIUM CHLORIDE 0.9% 1,000 ML IV ONE (19:58)
[2025-06-27 20:00] VITALS: PULSE 94
[2025-06-27 21:00] VITALS: BP 134/83; PULSE 91; RESP 18; TEMP 98.6; O2SAT 98
[2025-06-28 01:00] VITALS: BP 125/86; PULSE 86; RESP 18; TEMP 97.9; O2SAT 95
[2025-06-28 05:00] VITALS: BP 106/51; PULSE 85; RESP 16; TEMP 97.9; O2SAT 95
[2025-06-28 07:50] LABS: Hematocrit 45.8 % (41.0-53.0); Hemoglobin 15.6 g/dL (13.5-17.5); Mean Corpuscular Hemoglobin 30.5 pg (28.0-32.0); Mean Corpuscular Volume 89.4 fL (80.0-100.0); Nucleated Red Blood Cells % 0.1 %
[2025-06-28 08:00] VITALS: PULSE 79
[2025-06-28 08:10] VITALS: BP 132/81; PULSE 93; RESP 18; TEMP 98.4; O2SAT 98
[2025-06-28 08:21] LABS: Alanine Aminotransferase 31 U/L (7-40); Albumin 4.8 g/dL (3.2-4.8); Alkaline Phosphatase 48 U/L (46-116); Anion Gap 10 (5-15); BUN/Creatinine Ratio 5.2 (10.0-20.0); Calcium 9.4 mg/dL (8.7-10.4); Carbon Dioxide 26 mmol/L (20-31); Chloride 106 mmol/L (98-107); Glucose 82 mg/dL (74-106); Potassium 3.8 mmol/L (3.5-5.1); Sodium 142 mmol/L (136-145); Total Protein 6.8 g/dL (5.7-8.2)
[2025-06-28 08:22] LABS: Bilirubin, Total 0.7 mg/dL (0.2-1.0)
[2025-06-28 08:38] LABS: Blood Urea Nitrogen 6 mg/dL (9-23); Creatine Kinase IFCC 1461 U/L (46-171)
[2025-06-28] MEDS: cefTRIAXone 1GM/50ML D5W 50 ML IV SCH (09:00)
--- NOTE | 2025-06-28 13:47 | DVHDSRES ---
Discharge Summary Date of Admission Resident Creating Document: JOSE HERNANDEZ Jun 26, 2025 at 23:27 Date of Discharge: Jun 28, 2025 Admitting Diagnosis # Seizure X 2 episodes Labs/Diagnostic Data: Laboratory Results Test 06/28/25 06:51 06/28/25 06:27 06/27/25 20:59 06/27/25 18:28 White Blood Count 6.5 10^3/uL (4.4-10.8) Red Blood Count 5.12 10^6/uL (4.5-5.90) Hemoglobin 15.6 g/dL (13.5-17.5) Hematocrit 45.8 % (41.0-53.0) Mean Corpuscular Volume 89.4 fL (80.0-100.0) Mean Corpuscular Hemoglobin 30.5 pg (28.0-32.0) Mean Corpuscular Hemoglobin Concent 34.1 g/dL (32.0-36.0) Red Cell Distribution Width 14.1 % (11.8-14.3) Platelet Count 271 10^3/uL (140-450) Mean Platelet Volume 7.8 fL (6.9-10.8) Neutrophils (%) (Auto) 61.8 % (37.0-80.0) Lymphocytes (%) (Auto) 27.8 % (10.0-50.0) Monocytes (%) (Auto) 9.7 % (0.0-12.0) Eosinophils (%) (Auto) 0.2 % (0.0-7.0) Basophils (%) (Auto) 0.5 % (0.0-2.0) Neutrophils # (Auto) 4.0 10 ^3/uL (1.6-8.6) Lymphocytes # (Auto) 1.8 10 ^3/uL (0.4-5.4) Monocytes # (Auto) 0.6 10 ^3/uL (0-1.3) Eosinophils # (Auto) 0 10 ^3/uL (0-0.8) Basophils # (Auto) 0 10 ^3/uL (0-0.2) Nucleated Red Blood Cells 0.1 % Sodium Level 142 mmol/L (136-145) Potassium Level 3.8 mmol/L (3.5-5.1) Chloride Level 106 mmol/L (98-107) Carbon Dioxide Level 26 mmol/L (20-31) Anion Gap 10 (5-15) Blood Urea Nitrogen 6 mg/dL (9-23) Creatinine 1.15 mg/dL (0.700-1.30) Glomerular Filtration Rate Calc 88 mL/min (>90) BUN/Creatinine Ratio 5.2 (10.0-20.0) Serum Glucose 82 mg/dL (74-106) Calcium Level 9.4 mg/dL (8.7-10.4) Total Bilirubin 0.7 mg/dL (0.2-1.0) Aspartate Amino Transferase (AST) 57 U/L (13-40) Alanine Aminotransferase (ALT) 31 U/L (7-40) Alkaline Phosphatase 48 U/L (46-116) Creatine Kinase 1461 U/L (46-171) Total Protein 6.8 g/dL (5.7-8.2) Albumin 4.8 g/dL (3.2-4.8) Vancomycin Level Trough 4.4 ug/mL (5-10) POC Glucose 87 mg/dl (70-106) Prothrombin Time 10.9 sec (9.3-11.8) Prothrombin Time INR 1.03 (0.9-1.15) Activated Partial Thromboplast Time 26.2 SEC (24.5-34.5) Hemoglobin A1c 5.1 % A1C (<5.7) Lactic Acid Level 1.5 mmol/L (0.4-2.0) Vitamin B12 Level 428 pg/mL (211-911) Free Thyroxine (T4) Calculated 1.14 ng/dL (0.89-1.76) Test 06/27/25 18:00 06/27/25 13:15 06/26/25 19:51 Magnesium Level 2.4 mg/dL (1.6-2.6) Direct Bilirubin 0.2 mg/dL (<0.3) Triglycerides Level 82 mg/dL (< 150) Cholesterol Level 133 mg/dL (< 200) LDL Cholesterol 74 mg/dL (< 100) HDL Cholesterol 46 mg/dL (40-59) Thyroid Stimulating Hormone (TSH) 4.95 uIU/mL (0.55-4.78) Plasma/Serum Blood Alcohol < 3.0 mg/dL (<10) Urine Color Colorless (Yellow) Urine Clarity Clear (Clear) Urine pH 5.0 (5.0-9.0) Urine Specific [place] 1.007 (1.001-1.035) Urine Protein Negative (Negative) Urine Ketones Negative (Negative) Urine Blood Negative /uL (Negative) Urine Nitrite Negative (Negative) Urine Bilirubin Negative (Negative) Urine Urobilinogen Normal mg/dL (Negative) Urine Leukocyte Esterase Negative /uL (Negative) Urine RBC <1 /hpf (0 - 3) Urine Microscopic WBC < 1 /HPF (0-3) Urine Squamous Epithelial Cells Few /hpf (<5) Urine Bacteria None seen /hpf (None Seen) Urine Glucose Normal mg/dL (Normal) Urine Opiates Screen Neg (NEGATIVE) Urine Fentanyl Screen Neg (NEGATIVE) Urine Barbiturates Screen Neg (NEGATIVE) Urine Phencyclidine Screen Neg (NEGATIVE) Urine Amphetamines Screen Neg (NEGATIVE) Urine Benzodiazepines Screen Pos (NEGATIVE) Urine Cocaine Screen Neg (NEGATIVE) Urine Cannabinoids Screen Pos (NEGATIVE) Other Laboratory Tests 06/28/25 06:51 Brief Hx & Hospital Course: Patient is a 37-year-old male with past medical history of epilepsy who presented to the ED with chief complaints of seizure, patient has had a seizure with nausea and vomiting before getting admitted and had 2 episodes of seizure in the hospital. Patient was started on IV Keppra and given Ativan which stopped the seizure. Patient was confused after the seizure and did not know where he was but was oriented to person. Surgical history: Denies Personal history: vapes, smokes marijuana, states he had drug use 2 months ago brief hospital course: Patient came to the hospital with chief complaints of 2 episodes of seizure as he had a history of epileptic disorder, ALOC due to postictal state, head CT showed no acute intracranial pathology, Neurology was consulted. IR was consulted for possible lumbar puncture. Keppra levels were unable to be checked because of stat given in the ID patient was given Ativan 2 mg, Keppra b.i.d. IV, patient was kept in isolation and droplet precautions were done. Patient was on neuro checks q.4 hours. Patient was started on vancomycin, ceftriaxone IV for possible meningitis. Patient had rhabdomyolysis as his CK levels were high and was given fluids. Patient had polysubstance abuse disorder for which was counseled on cessation of marijuana, vaping for over 13 minutes. The next morning CK levels were repeated and were still high due to unsafe discharge patient was counseled to stay in the hospital for further management but he wanted to leave AMA. Patient was counseled on the risks of leaving AMA, he communicated understanding of the possible risks and still wanted to leave. Patient signed the AMA form and has left. He was counseled on returning to the nearest ED for any worsening of his symptoms are further seizure episodes. Operations or Procedures ORDERING PHYSICIAN: VAHID BRYANT DNP PROCEDURE(s): HWOCT - HEAD WITHOUT CONTRAST REASON: Seizure ORDER NUMBER(s): [id number], ACCESSION NUMBER(s): [id number] EXAM: CT HEAD WITHOUT CONTRAST INDICATION: Seizure TECHNIQUE: CT of the head without intravenous contrast. Radiation Dose : 1. Head: CT Dose: CTDI volume is 57.21 mGy. Dose-length product is 1127.42 mGy*cm The dose indicators for CT are the volume Computed Tomography (CT) Dose Index (CTDIvol) and the Dose Length Product (DLP), and are measured in units of mGy and mGy-cm, respectively. These indicators are not patient dose, but values generated from the CT scanner acquisition factors. The report includes radiation exposure data for exposures received during this examination. COMPARISON: None FINDINGS: There is no evidence of acute intracranial hemorrhage, extra-axial collection, mass effect, midline shift, herniation or hydrocephalus. The ventricles, sulci and cisterns are age appropriate. The desouza-white differentiation is intact. The visualized paranasal sinuses are clear. Minimal partial opacification of lateral left mastoid air cells. Right mastoid air cells are clear. The surrounding soft tissues and osseous structures are unremarkable. IMPRESSION: 1. No acute intracranial abnormality. 2. Minimal partial opacification of lateral left mastoid air cells. Radiation optimization: All CT scans at this facility use at least one of these dose optimization techniques: automated exposure control mA and/or kV adjustment per patient size (includes targeted exams where dose is matched to clinical indication) or iterative reconstruction. ATED BY: HOMERO STACK MD DICTATED DATE/TIME: 06/27/25513 SIGNED BY: HOMERO STACK MD SIGNED DATE/TIME: 06/27/25513 Condition at Discharge: Undetermined Final Diagnosis/Problems List # Seizure X 2 episodes # history of epileptic disorder # Rhabdomyolysis # SIRS due to Acute Seizures # ALOC due to Postictal state # ruled out metabolic causes # ruled out meningitis # suspected noncompliance # polysubstance abuse disorder Discharge Disposition: AMA Discharge Instruct/Medications Scheduled Levetiracetam (Keppra), 500 MG PO TID, (Reported) Phenytoin Sodium (Dilantin Capsule), 100 MG PO DAILY, (Reported) Discharge Statement: "Patient was advised to return to the ER or call 911 if any headaches, dizziness, shortness of breath, chest pain, abdominal pain, bleeding, fevers, or worsening of medical condition. Patient was counseled about treatment plan, medications, possible side effects, patientverbalized understanding. All questions were answered to the best of my ability. This discharge took greater then 30 minutes in planning, reviewing documentation, counseling the patient, and discussing with other team members." ASSESSMENT ASSESSMENT Assessment Date of Service: Jun 28, 2025 Billing Provider: NAIF MARK MD Common Visit Codes: 09113-DXL/OBS DISCH DAY >30min JOSE HERNANDEZ RESIDENT Jun 28, 2025 13:47 NAIF MARK MD Jun 29, 2025 21:13
--- NOTE | 2025-06-30 08:17 | ECG ---
[facility] Test Date: 2025-06-26 Test Time: 15:56:21 Pat Name: EWELINA ALCARAZ Department: [facility] ED Patient ID: [facility]-[id number] Room: 0238T A Gender: M [employer] Manager: PATSY SUMMERSB: 1995 Requested By: LU CARCAMO Order Number: [id number] Reading MD: Alberto Mackenzie Measurements Intervals [place] Rate: 100 P: 66 VA: 135 QRS: -17 QRSD: 85 T: 66 QT: 304 QTc: 392 Interpretive Statements Sinus tachycardia Borderline left axis deviation RSR' in V1 or V2, right VCD or RVH Electronically Signed On 07-01-2025 14:26:49 PDT by Alberto Mackenzie Please click the below link to view image of tracing.
== END 2025-06-28 11:15 | disposition left against medical advice (07) | DRG 53 ==
LOC: ER 12:28 → OVERFLOW 23:27 → EDBD 23:27 → TELE-EAST 06-27 15:50
PROVIDERS: ADMIT Student in an Organized Health Care Education/Training Program; ATTEND Emergency Medicine
DX: G40.409 Other generalized epilepsy and epileptic syndromes, not intractable, without status epilepticus (principal); M62.82 Rhabdomyolysis; R65.10 Systemic inflammatory response syndrome (SIRS) of non-infectious origin without acute organ dysfunction; F12.10 Cannabis abuse, uncomplicated; F19.10 Other psychoactive substance abuse, uncomplicated; D72.829 Elevated white blood cell count, unspecified; Z91.199 Patient's noncompliance with other medical treatment and regimen due to unspecified reason; Z53.29 Procedure and treatment not carried out because of patient's decision for other reasons
CPT/HCPCS: 36415; 70450; 80048; 80053; 80061; 80076; 80202; 80307; 80320; 81001; 82542; 82550; 82607; 82652; 82962; 83036; 83605; 83735; 84439; 84443; 85025; 85610; 85730; 87040; 93005; 96361; 96372; 96374; 96375; 99291; G0378; J2250; J2405

== ENCOUNTER 2025-07-09 20:59 | Inpatient (IN) | payer MEDICAID ==
[~2025-07-09] VITALS: Ht 177.8 cm; Wt 81.8 kg
[~2025-07-09 20:59] MED LIST: LEVE500T40 PO; PHEN1CAP38 PO
[2025-07-09] MEDS: LORazepam 2MG/ML-1ML VIAL IV ONE (21:13)
--- NOTE | 2025-07-09 21:21 | ED.PDOC ---
HPI (NEURO) HPI Comments 30 year old male presents to the ED with a chief complaint of seizure onset today. Patient was dropped off by unknown individual who states patient experienced multiple seizure episodes. Patient was discharged from [facility] on 06/28/25, was admitted due to seizures. Patient presented post-ictal. During assessment, patient experienced another seizure episode. No other symptoms or modifying factors present at this time. Chief Complaint: Seizure Time Seen by MD: 21:05 Reviewed Notes: Medications, Allergies Information Source: Patient Mode of Arrival: Ambulatory Severity: Moderate Timing: Hours Duration: Since onset Prehospital treatment: None Seizure Quality: Tonic-clonic Seizure Location: Generalized Onset: At rest Circumstances: Spontaneous Before: Normal History of: Seizure Disorder Past Medical History PAST MEDICAL HISTORY: Seizures Surgical History: Denies all surgeries Social History Smoker: Non-Smoker Alcohol: Denies ETOH Use Drugs: Marijuana Constitutional: denies: chills, diaphoresis, fatigue, fever, malaise, sweats, weakness, others EENTM: denies: blurred vision, double vision, ear bleeding, ear discharge, ear drainage, ear pain, ear ringing, eye pain, eye redness, hearing loss, mouth pain, mouth swelling, nasal discharge, nose bleeding, nose congestion, nose pain, photophobia, tearing, throat pain, throat swelling, voice changes, others Respiratory: denies: cough, hemoptysis, orthopnea, SOB at rest, shortness of breath, SOB with excertion, stridor, wheezing, others Cardiovascular: denies: chest pain, dizzy spells, diaphoresis, Dyspnea on exertion, edema, irregular heart beat, left arm pain, lightheadedness, palpitations, PND, syncope, others Gastrointestinal: denies: abdomen distended, abdominal pain, blood streaked bowels, constipated, diarrhea, dysphagia, difficulty swallowing, hematemesis, melena, nausea, poor appetite, poor fluid intake, rectal bleeding, rectal pain, vomiting, others Genitourinary: denies: burning, dysuria, flank pain, frequency, hematuria, incontinence, penile discharge, penile sore, pain, testicle pain, testicle swelling, urgency, others Neurological: reports: seizure; denies: dizziness, fainting, headache, left sided numbness, left sided weakness, numbness, paresthesia, pre-existing deficit, right sided numbness, right sided weakness, speech problems, tingling, tremors, weakness, others Musculoskeletal: denies: back pain, gout, joint pain, joint swelling, muscle pain, muscle stiffness, neck pain, others Integumetry: denies: bruises, change in color, change in hair/nails, dryness, laceration, lesions, lumps, rash, wounds, others Allergic/Immunocompromised: denies: Difficulty Healing, Frequent Infections, Hives, Itching, others Hematologic/Lymphatic: denies: anemia, blood clots, easy bleeding, easy bruising, swollen glands, others Endocrine: denies: excessive hunger, excessive sweating, excessive thirst, excessive urination, flushing, intolerance to cold, intolerance to heat, unexplained weight gain, unexplained weight loss, others Psychiatric: denies: anxiety, bipolar disorder, depression, hopeless, panic disorder, schizophrenia, sleepless, suicidal, others All Other Systems: Reviewed and Negative Physical Exam General Appearance: No Apparent Distress, Normal HEENT: Normal ENT Inspection, Pharynx Normal, TMs Normal Neck: Full Range of Motion, Non-Tender, Normal, Normal Inspection Respiratory: Chest Non-Tender, Lungs Clear, No Accessory Muscle Use, No Respiratory Distress, Normal Breath Sounds Cardiovascular: No Edema, No JVD, No Murmur, No Gallop, Normal Peripheral Pulses, Regular Rate/Rhythm Breast Exam: Deferred Gastrointestinal: No Organomegaly, Non Tender, No Pulsatile Mass, Normal Bowel Sounds, Soft Genitalia: Deferred Pelvic: Deferred Rectal: Deferred Extremities: No calf tenderness, Normal capillary refill, Normal inspection, Normal range of motion, Non-tender, No pedal edema Musculoskeletal : Apperance: Normal Neurologic: Alert, [employer] II-XII nml as Tested, No Motor Deficits, Normal Affect, Normal Mood, No Sensory Deficits Cerebellar Function: Normal Reflexes: Normal Skin: Dry, Normal Color, Warm Lymphatic: No Adenopathy Was a procedure done? Was a procedure done?: No Differential Diagnosis (SZ) Seizure: Hyperventilation, Psychogenic Seizure, Alcohol Withdrawl, Anticonvulsant Withdrawl, Closed Head Injury, CVA/TIA, Drug Ingestion, Hyponatremia, Mass Lesion, Encephalopathy, Epilepsy-Break Through, Epilepsy- Status, Other X-Ray, Labs, Meds, VS Vital Signs Date Time Temp Pulse Resp B/P (MAP) Pulse Ox O2 Delivery O2 Flow Rate FiO2 07/09/25 23:16 97.7 110 17 136/83 (100) 93 97.7 07/09/25 23:16 20 Room Air* 0 21 07/09/25 22:17 19 Nasal Cannula* 2 28 07/09/25 22:00 110 17 124/72 (89) 95 07/09/25 21:42 98 13 142/71 (94) 95 07/09/25 21:23 100 07/09/25 21:00 98.5 100 20 132/86 95 98.5 Lab Test 07/09/25 23:00 07/09/25 21:37 Range/Units Urine Opiates Screen Pending Urine Fentanyl Screen Pending Urine Barbiturates Screen Pending Urine Phencyclidine Screen Pending Urine Amphetamines Screen Pending Urine Benzodiazepines Screen Pending Urine Cocaine Screen Pending Urine Cannabinoids Screen Pending White Blood Count 21.0 H 4.4-10.8 10^3/uL Red Blood Count 5.73 4.5-5.90 10^6/uL Hemoglobin 17.2 13.5-17.5 g/dL Hematocrit 52.9 41.0-53.0 % Mean Corpuscular Volume 92.4 80.0-100.0 fL Mean Corpuscular Hemoglobin 30.0 28.0-32.0 pg Mean Corpuscular Hemoglobin Concent 32.5 32.0-36.0 g/dL Red Cell Distribution Width 14.8 H 11.8-14.3 % Platelet Count 354 140-450 10^3/uL Mean Platelet Volume 8.4 6.9-10.8 fL Neutrophils (%) (Auto) 85.7 H 37.0-80.0 % Lymphocytes (%) (Auto) 7.7 L 10.0-50.0 % Monocytes (%) (Auto) 6.2 0.0-12.0 % Eosinophils (%) (Auto) 0.1 0.0-7.0 % Basophils (%) (Auto) 0.3 0.0-2.0 % Neutrophils # (Auto) 18.0 H 1.6-8.6 10 ^3/uL Lymphocytes # (Auto) 1.6 0.4-5.4 10 ^3/uL Monocytes # (Auto) 1.3 0-1.3 10 ^3/uL Eosinophils # (Auto) 0 0-0.8 10 ^3/uL Basophils # (Auto) 0.1 0-0.2 10 ^3/uL Nucleated Red Blood Cells 0.3 % Sodium Level 140 136-145 mmol/L Potassium Level 3.7 3.5-5.1 mmol/L Chloride Level 98 98-107 mmol/L Carbon Dioxide Level 11 L 20-31 mmol/L Anion Gap 31 H 5-15 Blood Urea Nitrogen 10 9-23 mg/dL Creatinine 1.73 H 0.700-1.30 mg/dL Glomerular Filtration Rate Calc 54 >90 mL/min BUN/Creatinine Ratio 5.8 L 10.0-20.0 Serum Glucose 195 H 74-106 mg/dL Calcium Level 10.0 8.7-10.4 mg/dL Magnesium Level 2.9 H 1.6-2.6 mg/dL Total Bilirubin 0.3 0.2-1.0 mg/dL Aspartate Amino Transferase (AST) 43 H 13-40 U/L Alanine Aminotransferase (ALT) 50 H 7-40 U/L Alkaline Phosphatase 66 46-116 U/L Total Protein 8.8 H 5.7-8.2 g/dL Albumin 5.6 H 3.2-4.8 g/dL Plasma/Serum Blood Alcohol < 3.0 <10 mg/dL Current Medications Medications (Trade) Dose Ordered Sig/Nayan Route Start Time Stop Time Status Last Admin Sodium Chloride 1,000 ml @ 1,000 mls/hr Q1H ONCE IVB 07/09/25 21:30 07/09/25 22:29 DC 07/09/25 21:36 Levetiracetam 100 ml @ 400 mls/hr ONCE ONCE IV 07/09/25 21:30 07/09/25 21:44 DC 07/09/25 21:35 Lorazepam (Ativan Inj) 2 mg ONCE ONCE IV 07/09/25 21:30 07/09/25 21:31 DC 07/09/25 21:13 Levetiracetam 100 ml @ 400 mls/hr ONCE ONCE IV 07/09/25 21:30 07/09/25 21:44 DC 07/09/25 21:30 Time of 1ST Reevaluation: 21:35 Reevaluation 1ST: Unchanged Patient Education/Counseling: Diagnosis, Treatment Family Education/Counseling: No Family Present Departure 1 Departure Time of Disposition: 23:51 Impression: Primary Impression: Seizure disorder Additional Impressions: Intractable seizures Acute renal injury Hyperglycemia Disposition: ADMITTED INPATIENT Condition: Guarded Comments 30-year-old male with a history of seizure disorder now presents after he had 2- 3 seizures at home back to back. Patient had a seizure shortly after arrival to the emergency department that lasted about a minute. It was tonic-clonic generalized. It resolved spontaneously. Patient had postictal phase afterwards. On lab review white blood cell count is high at 21. Acute renal injury with creatinine high at 1.73. Hyperglycemia 195. Patient was given Ativan and Keppra IV. Patient was given IV fluids. Patient will need to be admitted for supportive care and further workup. Critical Care Note Critical Care Time?: Yes (35 min-critical care time only) Critical care comment: Total critical care time: Approximately 36 minutes Due to a high probability of clinically significant, life threatening deterioration, the patient required my highest level of preparedness to intervene emergently and I personally spent this critical care time directly and personally managing the patient. This critical care time included obtaining a history; examining the patient; pulse oximetry; ordering and review of studies; arranging urgent treatment with development of a management plan; evaluation of patient's response to treatment; frequent reassessment; and, discussions with other providers. This critical care time was performed to assess and manage the high probability of imminent, life-threatening deterioration that could result in multi-organ failure. It was exclusive of separately billable procedures and treating other patients. Stability Stability form required: No Heart Score Heart Score: Heart Score Response (Comments) Value History N/A 0 EKG N/A 0 Age N/A 0 Risk Factors N/A 0 Troponin N/A 0 Total 0 I personally scribed for CHANDRIKA COYNE MD ([email or web address]) on 07/09/25 at 21:21. Electronically submitted by Kailey Davis ([email or web address]). CHANDRIKA COYNE MD Jul 09, 2025 21:21
[2025-07-09] MEDS: levETIRAcetam 1000 mg/100ml 100 ML IV ONE ×2 (21:30→21:35)
[2025-07-09] MEDS: LORazepam 2MG/ML-1ML VIAL ONE (21:35)
[2025-07-09] MEDS: SODIUM CHLORIDE 0.9% 1,000 ML IVB ONE (21:36)
[2025-07-09 21:49] LABS: Hematocrit 52.9 % (41.0-53.0); Hemoglobin 17.2 g/dL (13.5-17.5); Mean Corpuscular Hemoglobin 30.0 pg (28.0-32.0); Mean Corpuscular Volume 92.4 fL (80.0-100.0); Nucleated Red Blood Cells % 0.3 %
[2025-07-09 22:06] LABS: Alkaline Phosphatase 66 U/L (46-116); Anion Gap 31 (5-15); BUN/Creatinine Ratio 5.8 (10.0-20.0); Blood Urea Nitrogen 10 mg/dL (9-23); Calcium 10.0 mg/dL (8.7-10.4); Carbon Dioxide 11 mmol/L (20-31); Chloride 98 mmol/L (98-107); Glucose 195 mg/dL (74-106); Potassium 3.7 mmol/L (3.5-5.1); Sodium 140 mmol/L (136-145)
[2025-07-09 22:07] LABS: Alanine Aminotransferase 50 U/L (7-40); Albumin 5.6 g/dL (3.2-4.8); Bilirubin, Total 0.3 mg/dL (0.2-1.0); Magnesium 2.9 mg/dL (1.6-2.6); Total Protein 8.8 g/dL (5.7-8.2)
[2025-07-09 22:17] VITALS: RESP 19
[2025-07-09 23:16] VITALS: RESP 20
--- NOTE | 2025-07-09 23:36 | DVH ---
CLINICAL HISTORY: intractable seizures TECHNIQUE: Helical imaging carried out from skull base to vertex without intravenous contrast. This e xam was performed according to our departmental dose optimization program. Up-to-date CT equipment an d radiation dose reduction techniques are utilized as appropriate. 63.47 CTDIVol: 63.47 mGy DLP: 1.71 mGy-cm WID: COMPARISON: CT HEAD WITHOUT CONTRAST on DOS: 06/27/25 FINDINGS: The ventricles and subarachnoid spaces are normal in size and configuration. There is no midline cris ft or mass effect. The desouza white matter interfaces are maintained. The basal cisterns are patent. Th ere is no evidence of acute intracranial hemorrhage or extra-axial fluid collection. The mastoid air cells and visualized paranasal sinuses are well-aerated. IMPRESSION: 1. No acute intracranial abnormality.
[2025-07-09 23:53] LABS: Cannabinoid Screen, Urine Pos (NEGATIVE)
[2025-07-09 23:59] LABS: Barbiturate Scree,Urine Neg (NEGATIVE); Opiate Scree,Urine Neg (NEGATIVE); Phencyclidine Screen, Urine Neg (NEGATIVE)
[2025-07-10] LABS: Amphetamine Screen, Urine Neg (NEGATIVE); Benzodiazephine Screen, Urine Neg (NEGATIVE); Cocaine Screen, Urine Neg (NEGATIVE)
[2025-07-10] MEDS ORDERED: LORazepam 2MG/ML-1ML VIAL IV PRN (01:00)
[2025-07-10] MEDS ORDERED: ACETAMINOPHEN 325 MG TAB PO PRN (01:00)
[2025-07-10] MEDS ORDERED: ONDANSETRON HCL 4 MG/2 ML VIAL IV PRN (01:00)
--- NOTE | 2025-07-10 04:14 | DVHHP2 ---
History of Present Illness Reason for Visit: Seizure History of Present Illness 30-year-old male presents for evaluation of seizure activity. Patient resides at a [facility] where he lives witnessed to to have multiple seizures today. Patient is currently awake and alert but refusing to answer any questions. No further history could be obtained at the moment. Past Medical History Seizure Past Surgical History None Family History Noncontributory Smoke: No ALCOHOL: none Drugs: Marijuana Review of Systems Review of Systems Review of systems are currently negative otherwise addressed in HPI. Allergies: Coded Allergies: NO KNOWN ALLERGIES (Unverified , 06/26/25) Medications Current Medications Medications Dose Ordered Sig/Nayan Route Start Time Stop Time Status Last Admin Dose Admin Levetiracetam 1,000 mg BID PO 07/10/25 10:00 Phenytoin Sodium 100 mg Q12HR PO 07/10/25 10:00 Ondansetron HCl 4 mg Q4HP PRN IV 07/10/25 01:00 Acetaminophen 650 mg Q6HP PRN PO 07/10/25 01:00 Lorazepam 1 mg Q5MINP PRN IV 07/10/25 01:00 Exam Vital Signs Vital Signs Date Time Temp Pulse Resp B/P (MAP) Pulse Ox O2 Delivery O2 Flow Rate FiO2 07/10/25 04:00 97.6 109 14 133/76 (95) 97 97.6 07/09/25 23:16 Room Air* 0 21 Exam Gen: 30-year-old male in no apparent distress Skin: Warm, dry, normal color and texture, no rash. HEENT: Normocephalic atraumatic, mucous membranes moist and pink. Neck: Cervical and supraclavicular nodes normal without enlargement, trachea is midline, thyroid gland is normal without masses. Pulmonary: Clear to auscultation and percussion bilaterally. Cardiac: Regular rate and rhythm. No murmur Abdomen: Soft, nontender, nondistended, bowel sounds present all 4 quadrants, no guarding, no rigidity, no organomegaly. Extremities: No cyanosis, clubbing, no edema Neuro: Cranial nerves II through XII grossly intact, normal affect and speech, no focal motor deficits. Labs/Xrays ORDERING PHYSICIAN: CHANDRIKA COYNE MD PROCEDURE(s): HWOCT - HEAD WITHOUT CONTRAST REASON: intractable seizures ORDER NUMBER(s): [id number], ACCESSION NUMBER(s): [id number] CLINICAL HISTORY: intractable seizures TECHNIQUE: Helical imaging carried out from skull base to vertex without intravenous contrast. This exam was performed according to our departmental dose optimization program. Up-to-date CT equipment and radiation dose reduction techniques are utilized as appropriate. 63.47 CTDIVol: 63.47 mGy DLP: 1.71 mGy-cm WID: COMPARISON: CT HEAD WITHOUT CONTRAST on DOS: 06/27/25 FINDINGS: The ventricles and subarachnoid spaces are normal in size and configuration. There is no midline shift or mass effect. The desouza white matter interfaces are maintained. The basal cisterns are patent. There is no evidence of acute intracranial hemorrhage or extra-axial fluid collection. The mastoid air cells and visualized paranasal sinuses are well-aerated. IMPRESSION: 1. No acute intracranial abnormality. Labs Test 07/09/25 23:00 07/09/25 21:37 Range/Units Urine Opiates Screen Neg NEGATIVE Urine Fentanyl Screen Neg NEGATIVE Urine Barbiturates Screen Neg NEGATIVE Urine Phencyclidine Screen Neg NEGATIVE Urine Amphetamines Screen Neg NEGATIVE Urine Benzodiazepines Screen Neg NEGATIVE Urine Cocaine Screen Neg NEGATIVE Urine Cannabinoids Screen Pos NEGATIVE White Blood Count 21.0 H 4.4-10.8 10^3/uL Red Blood Count 5.73 4.5-5.90 10^6/uL Hemoglobin 17.2 13.5-17.5 g/dL Hematocrit 52.9 41.0-53.0 % Mean Corpuscular Volume 92.4 80.0-100.0 fL Mean Corpuscular Hemoglobin 30.0 28.0-32.0 pg Mean Corpuscular Hemoglobin Concent 32.5 32.0-36.0 g/dL Red Cell Distribution Width 14.8 H 11.8-14.3 % Platelet Count 354 140-450 10^3/uL Mean Platelet Volume 8.4 6.9-10.8 fL Neutrophils (%) (Auto) 85.7 H 37.0-80.0 % Lymphocytes (%) (Auto) 7.7 L 10.0-50.0 % Monocytes (%) (Auto) 6.2 0.0-12.0 % Eosinophils (%) (Auto) 0.1 0.0-7.0 % Basophils (%) (Auto) 0.3 0.0-2.0 % Neutrophils # (Auto) 18.0 H 1.6-8.6 10 ^3/uL Lymphocytes # (Auto) 1.6 0.4-5.4 10 ^3/uL Monocytes # (Auto) 1.3 0-1.3 10 ^3/uL Eosinophils # (Auto) 0 0-0.8 10 ^3/uL Basophils # (Auto) 0.1 0-0.2 10 ^3/uL Nucleated Red Blood Cells 0.3 % Sodium Level 140 136-145 mmol/L Potassium Level 3.7 3.5-5.1 mmol/L Chloride Level 98 98-107 mmol/L Carbon Dioxide Level 11 L 20-31 mmol/L Anion Gap 31 H 5-15 Blood Urea Nitrogen 10 9-23 mg/dL Creatinine 1.73 H 0.700-1.30 mg/dL Glomerular Filtration Rate Calc 54 >90 mL/min BUN/Creatinine Ratio 5.8 L 10.0-20.0 Serum Glucose 195 H 74-106 mg/dL Calcium Level 10.0 8.7-10.4 mg/dL Magnesium Level 2.9 H 1.6-2.6 mg/dL Total Bilirubin 0.3 0.2-1.0 mg/dL Aspartate Amino Transferase (AST) 43 H 13-40 U/L Alanine Aminotransferase (ALT) 50 H 7-40 U/L Alkaline Phosphatase 66 46-116 U/L Total Protein 8.8 H 5.7-8.2 g/dL Albumin 5.6 H 3.2-4.8 g/dL Phenytoin (Dilantin) Level < 2.0 L 10-20 ug/mL Plasma/Serum Blood Alcohol < 3.0 <10 mg/dL SEPSIS Sepsis Screen Date sepsis recognized/suspect: Jul 09, 2025 Time Sepsis recognized/suspect: 2327 Recent Procedure: No On Antibiotic Therapy: No Respiratory Rate >20: No Heart Rate >90: Yes Temp<36 C (96.8 F) or >38.3 C: No SBP <90 or MAP <65 mmHG: No New Acute Mental Status Change: Yes Is the patient on CPAP, BIPAP,: No Physician Orders Heplock Iv (07/09/25 21:18) Seizure Precautions (07/09/25 21:18) Head Without Contrast (07/09/25 21:18) Electrocardigram (07/09/25 22:32) * Neurology Consult (07/10/25 00:49) Seizure Precautions In Place (07/10/25 00:49) Complete Blood Count (07/10/25 04:00) Basic Metabolic Panel (07/10/25 04:00) Levetiracetam Tablet (Keppra Tablet) (07/10/25 10:00) Phenytoin Capsule (Dilantin Capsule) (07/10/25 10:00) Admit (07/10/25 00:49) Ondansetron Hcl (Zofran) (07/10/25 01:00) Condition: Stable (07/10/25 00:49) Acetaminophen Tablet (Tylenol Tablet) (07/10/25 01:00) Bedrest With Bathroom Privileg (07/10/25 00:49) Regular Diet (07/10/25 Breakfast) Lorazepam 2mg/Ml Inj (Ativan Inj) (07/10/25 01:00) Vital Signs Date Time Temp Pulse Resp B/P (MAP) Pulse Ox O2 Delivery O2 Flow Rate FiO2 07/10/25 04:00 97.6 109 14 133/76 (95) 97 97.6 07/10/25 03:00 97.6 105 18 134/85 (101) 96 97.6 07/10/25 01:00 97.6 109 19 153/97 (115) 97 97.6 07/09/25 23:16 97.7 110 17 136/83 (100) 93 97.7 07/09/25 23:16 20 Room Air* 0 21 07/09/25 22:17 19 Nasal Cannula* 2 28 07/09/25 22:00 110 17 124/72 (89) 95 07/09/25 21:42 98 13 142/71 (94) 95 07/09/25 21:23 100 07/09/25 21:00 98.5 100 20 132/86 95 98.5 Laboratory Tests Test 07/09/25 21:37 White Blood Count 21.0 10^3/uL (4.4-10.8) H Medications Medications Dose Ordered Sig/Nayan Route Start Time Stop Time Status Last Admin Dose Admin Levetiracetam 100 ml @ 400 mls/hr ONCE ONCE IV 07/09/25 21:30 07/09/25 21:44 DC 07/09/25 21:30 400 MLS/HR Levetiracetam 100 ml @ 400 mls/hr ONCE ONCE IV 07/09/25 21:30 07/09/25 21:44 DC 07/09/25 21:35 400 MLS/HR Lorazepam 2 mg ONCE ONCE IV 07/09/25 21:30 07/09/25 21:31 DC 07/09/25 21:13 2 MG Sodium Chloride 1,000 ml @ 1,000 mls/hr Q1H ONCE IVB 07/09/25 21:30 07/09/25 22:29 DC 07/09/25 21:36 1,000 MLS/HR Assessment/Plan Assessment/Plan Assessment Breakthrough seizure Acute kidney injury Leukocytosis,? Reactive Plan Admit the patient to Med surge to the hospitalist Seizure precautions in place Resume home medications Nephrology consultation Continue treatment per orders. Plan discussed with: Patient My Orders Orders - MARCIAL CERNA Procedure Category Date Status Time * Neurology Consult CONS 07/10/25 Transmitted 00:49 Seizure Precautions MARY 07/10/[address] 00:49 Complete Blood Count LAB 07/10/25 Logged 04:00 Basic Metabolic Panel LAB 07/10/25 Logged 04:00 Levetiracetam Tablet PHA 07/10/25 In Process (Keppra Tablet) 10:00 Phenytoin Capsule PHA 07/10/25 In Process (Dilantin Capsule) 10:00 Admit ADMIT 07/10/25 Transmitted 00:49 Ondansetron Hcl PHA 07/10/25 In Process (Zofran) 01:00 Condition: Stable MARY 07/10/25 In Process 00:49 Acetaminophen Tablet PHA 07/10/25 In Process (Tylenol Tablet) 01:00 Bedrest With Bathroom MARY 07/10/25 In Process Privileg 00:49 Regular Diet DIET 07/10/25 Transmitted Breakfast Lorazepam 2mg/Ml Inj PHA 07/10/25 In Process (Ativan Inj) 01:00 Date of Service: Jul 10, 2025 Billing Provider: MARCIAL CERNA Common Visit Codes: [id number] INP/OBS CARE (MOD) MARCIAL CERNA Jul 10, 2025 04:14
[2025-07-10 07:22] LABS: Hematocrit 44.8 % (41.0-53.0); Hemoglobin 15.5 g/dL (13.5-17.5); Mean Corpuscular Hemoglobin 30.3 pg (28.0-32.0); Mean Corpuscular Volume 87.8 fL (80.0-100.0); Nucleated Red Blood Cells % 0.1 %
[2025-07-10 07:28] LABS: Chloride 101 mmol/L (98-107); Sodium 138 mmol/L (136-145)
[2025-07-10 07:29] LABS: Anion Gap 12 (5-15); Calcium 9.3 mg/dL (8.7-10.4); Carbon Dioxide 25 mmol/L (20-31)
[2025-07-10 07:30] VITALS: PULSE 97; RESP 13; O2SAT 97
[2025-07-10 07:31] LABS: Potassium 3.4 mmol/L (3.5-5.1)
[2025-07-10 07:34] LABS: BUN/Creatinine Ratio 9.2 (10.0-20.0); Blood Urea Nitrogen 11 mg/dL (9-23); Glucose 116 mg/dL (74-106)
[2025-07-10 08:00] VITALS: TEMP 99
--- NOTE | 2025-07-10 09:29 | DVHINCON2 ---
Date of service: Jul 10, 2025 Referring Physician Shekhar Reason for Consultation Seizure History of Present Illness Mr. Marcum is a 30 years old right-handed gentleman with a history of seizure disorder, he was dropped off by somebody to the [facility] ER on 07/09/2025 because he had multiple seizures. At this time, he is awake, oriented x3, but is not a good historian. He tells me he was at his own apartment, but the next memory was waking up in the emergency room confused, he did not have biting to his tongue/mouth, or inco ntinence He reports a seizure disorder since chang high, with complete amnesia about his symptoms, he remembers people said he had grand mal seizure, and he remembers has been biting to his tongue and incontinence during the event, he does not know how often he has seizures, he does not remember his family doctor's name, he claimed he had a specialist for his seizure but he does not remember the doctor's name, he tells me he is on Keppra 500 mg t.i.d., lamotrigine 100 mg b.i.d. (later he said 200 mg b.i.d.), Depakote one piece b.i.d. According to the External medication history, he should be on: Depakote 500 mg b.i.d., lamotrigine 200 mg b.i.d., Keppra 1000 mg b.i.d. During our conversation about his seizure medication treatment, he mentioned the best medication for his seizure was Keppra, but he wants to take all of them UDS, 07/09/2025: Cannabinoids Plasma alcohol, 07/09/2025: < three Dilantin, 07/09/2025: <2 WBC/HB/PLT/MCV, 07/10/25: 13.2/15.5/268/87.8 HCO3, 07/09/2025: 11, 07/10/2020 5:25 a.m. TBI/AST/ALT/AP, 07/09/2025: 0.3/43/50/66 CT head, 07/09/2025: No acute intracranial abnormality Past Medical History Seizures Past Surgical History No major surgeries Family History He does not remember major medical problem in the family Social History He smokes tobacco, THC marijuana, but no history of drug/alcohol abuse Allergies: Coded Allergies: NO KNOWN ALLERGIES (Unverified , 06/26/25) Home Meds Reported Medications Phenytoin Sodium (DILANTIN CAPSULE) 100 Mg Cp, 100 MG PO DAILY, CAP 06/27/25 Levetiracetam (Keppra) 500 Mg Tab, 500 MG PO TID for 30 Days, MG 06/27/25 Current Medications Current Medications Medications (Trade) Dose Ordered Sig/Nayan Route PRN Reason Start Time Stop Time Status Last Admin Levetiracetam (Keppra Tablet) 1,000 mg BID PO 07/10/25 10:00 Phenytoin Sodium (Dilantin Capsule) 100 mg Q12HR PO 07/10/25 10:00 Ondansetron HCl (Zofran) 4 mg Q4HP PRN IV NAUSEA / VOMITING 07/10/25 01:00 Acetaminophen (Tylenol Tablet) 650 mg Q6HP PRN PO PAIN SCALE 1-3 OR TEMP>100.4 07/10/25 01:00 Lorazepam (Ativan Inj) 1 mg Q5MINP PRN IV SEIZURES 07/10/25 01:00 Review of Systems As above, the other systems are negative Vital Signs Vital Signs Date Time Temp Pulse Resp B/P (MAP) Pulse Ox O2 Delivery O2 Flow Rate FiO2 07/10/25 08:00 101 07/10/25 08:00 99.0 17 122/73 (89) 95 99.0 07/10/25 07:30 Room Air* 0 21 Physical Exam GENERAL EXAM: General: the patient is well developed and nourished. No acute distress. HEENT: Normocephalic, neck is supple, no carotid bruits. No mass. RESPIRATORY: Normal respiratory effort with symmetrical lung expansion. Lungs clear to auscultation. CARDIOVASCULAR: Regular rate and rhythm with no murmurs. S1, S2. ABDOMEN: Soft, nontender, normal bowel sound NEUROLOGICAL: MENTAL STATUS: Awake and alert. Oriented to person, place, time , historian SPEECH, LANGUAGE, HIGHER CORTICAL FUNCTION: no aphasia or dysathria. CRANIAL NERVES: #2: Intact visual cage to confrontation. The optic discs were sharp. #3,4,6: Pupils are equal, round and reactive. EOMs full and conjugate. Mild bilateral gaze evoked nystagmus. #5: Facial sensation intact in all three divisions bilaterally. Mandibular strength intact. #7: Facial muscles symmetrical and strength intact. #8: Hearing grossly normal to voice. #9,10: Uvula and soft palate rise in the midline. Swallow and voice are normal. #11: Trapezius and sternomastoid strength intact bilaterally. #12: Tongue midline. No fasciculations or atrophy. SENSATION: Sensation to touch and pinprick is normal. MOTOR: Normal tone in the upper and lower extremity. Normal muscle bulk. No fasciculations. No abnormal movements or posturing. Muscle strength of the major groups in the upper extremities is 5/5. Muscle strength of the major groups in the lower extremities is 5/5. REFLEXES: Deep tendon reflexes normal and symmetrical. No pathological reflexes. CEREBELLAR/COORDINATION: Finger to nose and heel to cagle are normal bilaterally. GAIT/STATION: deferred. Labs/Diagnostic Data Labs Test 07/10/25 07:00 07/09/25 23:00 07/09/25 21:37 Range/Units White Blood Count 13.2 #H 4.4-10.8 10^3/uL Red Blood Count 5.11 4.5-5.90 10^6/uL Hemoglobin 15.5 13.5-17.5 g/dL Hematocrit 44.8 # 41.0-53.0 % Mean Corpuscular Volume 87.8 # 80.0-100.0 fL Mean Corpuscular Hemoglobin 30.3 28.0-32.0 pg Mean Corpuscular Hemoglobin Concent 34.5 32.0-36.0 g/dL Red Cell Distribution Width 14.5 H 11.8-14.3 % Platelet Count 268 140-450 10^3/uL Mean Platelet Volume 8.0 6.9-10.8 fL Neutrophils (%) (Auto) 80.0 37.0-80.0 % Lymphocytes (%) (Auto) 11.6 10.0-50.0 % Monocytes (%) (Auto) 7.3 0.0-12.0 % Eosinophils (%) (Auto) 0.1 0.0-7.0 % Basophils (%) (Auto) 1.0 0.0-2.0 % Neutrophils # (Auto) 10.5 H 1.6-8.6 10 ^3/uL Lymphocytes # (Auto) 1.5 0.4-5.4 10 ^3/uL Monocytes # (Auto) 1.0 0-1.3 10 ^3/uL Eosinophils # (Auto) 0 0-0.8 10 ^3/uL Basophils # (Auto) 0.1 0-0.2 10 ^3/uL Nucleated Red Blood Cells 0.1 % Sodium Level 138 136-145 mmol/L Potassium Level 3.4 L 3.5-5.1 mmol/L Chloride Level 101 98-107 mmol/L Carbon Dioxide Level 25 # 20-31 mmol/L Anion Gap 12 5-15 Blood Urea Nitrogen 11 9-23 mg/dL Creatinine 1.19 0.700-1.30 mg/dL Glomerular Filtration Rate Calc 85 >90 mL/min BUN/Creatinine Ratio 9.2 L 10.0-20.0 Serum Glucose 116 H 74-106 mg/dL Calcium Level 9.3 8.7-10.4 mg/dL Urine Opiates Screen Neg NEGATIVE Urine Fentanyl Screen Neg NEGATIVE Urine Barbiturates Screen Neg NEGATIVE Urine Phencyclidine Screen Neg NEGATIVE Urine Amphetamines Screen Neg NEGATIVE Urine Benzodiazepines Screen Neg NEGATIVE Urine Cocaine Screen Neg NEGATIVE Urine Cannabinoids Screen Pos NEGATIVE Magnesium Level 2.9 H 1.6-2.6 mg/dL Total Bilirubin 0.3 0.2-1.0 mg/dL Aspartate Amino Transferase (AST) 43 H 13-40 U/L Alanine Aminotransferase (ALT) 50 H 7-40 U/L Alkaline Phosphatase 66 46-116 U/L Total Protein 8.8 H 5.7-8.2 g/dL Albumin 5.6 H 3.2-4.8 g/dL Phenytoin (Dilantin) Level < 2.0 L 10-20 ug/mL Plasma/Serum Blood Alcohol < 3.0 <10 mg/dL Assessment Status epileptics Grand mal seizure I suspect poor compliance Plan/Recommendation Monitoring Supportive treatment Telemetry Ativan for seizure breakthrough Keppra 750 mg b.i.d. Lamotrigine 200 mg b.i.d. Depakote 500 mg b.i.d. Seizure triggers discussed Prognosis: Poor This medical document was created using an electronic medical record system with [employer] dictation system. Although this document has been carefully reviewed, there may still be some phonetic and typographical errors. These areas are purely typographical due to imperfections of the software programs, and do not reflect any compromise in the patient's medical care. Plan discussed with: Patient, Other RAMÓN ROSALES MD Jul 10, 2025 09:29
[2025-07-10] MEDS: PHENYTOIN SODIUM 100 MG CAP PO SCH (10:15)
[2025-07-10] MEDS: levETIRAcetam 500 MG TAB PO SCH (10:15)
[2025-07-10 11:00] VITALS: BP 112/71; PULSE 103; RESP 17; O2SAT 96
--- NOTE | 2025-07-10 11:44 | DVHDS2 ---
Discharge Summary Date of Admission Jul 10, 2025 at 00:49 Date of Discharge: Jul 10, 2025 Admitting Diagnosis Breakthrough seizure Acute kidney injury Leukocytosis,? Reactive Labs/Diagnostic Data: Laboratory Results Test 07/10/25 07:00 07/09/25 23:00 07/09/25 21:37 White Blood Count 13.2 10^3/uL (4.4-10.8) Red Blood Count 5.11 10^6/uL (4.5-5.90) Hemoglobin 15.5 g/dL (13.5-17.5) Hematocrit 44.8 % (41.0-53.0) Mean Corpuscular Volume 87.8 fL (80.0-100.0) Mean Corpuscular Hemoglobin 30.3 pg (28.0-32.0) Mean Corpuscular Hemoglobin Concent 34.5 g/dL (32.0-36.0) Red Cell Distribution Width 14.5 % (11.8-14.3) Platelet Count 268 10^3/uL (140-450) Mean Platelet Volume 8.0 fL (6.9-10.8) Neutrophils (%) (Auto) 80.0 % (37.0-80.0) Lymphocytes (%) (Auto) 11.6 % (10.0-50.0) Monocytes (%) (Auto) 7.3 % (0.0-12.0) Eosinophils (%) (Auto) 0.1 % (0.0-7.0) Basophils (%) (Auto) 1.0 % (0.0-2.0) Neutrophils # (Auto) 10.5 10 ^3/uL (1.6-8.6) Lymphocytes # (Auto) 1.5 10 ^3/uL (0.4-5.4) Monocytes # (Auto) 1.0 10 ^3/uL (0-1.3) Eosinophils # (Auto) 0 10 ^3/uL (0-0.8) Basophils # (Auto) 0.1 10 ^3/uL (0-0.2) Nucleated Red Blood Cells 0.1 % Sodium Level 138 mmol/L (136-145) Potassium Level 3.4 mmol/L (3.5-5.1) Chloride Level 101 mmol/L (98-107) Carbon Dioxide Level 25 mmol/L (20-31) Anion Gap 12 (5-15) Blood Urea Nitrogen 11 mg/dL (9-23) Creatinine 1.19 mg/dL (0.700-1.30) Glomerular Filtration Rate Calc 85 mL/min (>90) BUN/Creatinine Ratio 9.2 (10.0-20.0) Serum Glucose 116 mg/dL (74-106) Calcium Level 9.3 mg/dL (8.7-10.4) Urine Opiates Screen Neg (NEGATIVE) Urine Fentanyl Screen Neg (NEGATIVE) Urine Barbiturates Screen Neg (NEGATIVE) Urine Phencyclidine Screen Neg (NEGATIVE) Urine Amphetamines Screen Neg (NEGATIVE) Urine Benzodiazepines Screen Neg (NEGATIVE) Urine Cocaine Screen Neg (NEGATIVE) Urine Cannabinoids Screen Pos (NEGATIVE) Magnesium Level 2.9 mg/dL (1.6-2.6) Total Bilirubin 0.3 mg/dL (0.2-1.0) Aspartate Amino Transferase (AST) 43 U/L (13-40) Alanine Aminotransferase (ALT) 50 U/L (7-40) Alkaline Phosphatase 66 U/L (46-116) Total Protein 8.8 g/dL (5.7-8.2) Albumin 5.6 g/dL (3.2-4.8) Phenytoin (Dilantin) Level < 2.0 ug/mL (10-20) Plasma/Serum Blood Alcohol < 3.0 mg/dL (<10) Other Laboratory Tests 07/10/25 07:00 Brief Hx & Hospital Course: This is a 30 years old male with past medical history of seizure who had multiple seizure today at the [facility]. The patient had witnessed multiple seizure. The patient was admitted. The patient was put on Keppra 500 mg IV b.i.d.. The patient was put in Ativan as needed for active seizing. While waiting for more evaluation and observation regarding to seizure activity the patient adamant that he wanted to leave against medical advice. The patient was educated about seizure without controlled can cause brain damage and even but he still wanted to leave against medical advice. Physical exam: HEENT: Normocephalic atraumatic pupils equal react to light and accommodation. Extraocular muscles intact, conjunctiva pink, oropharynx moist, no thrush, no exudate. Lymphatic: No lymphadenopathy Cardiovascular exam: S1, S2 was heard. No murmurs, rubs, gallops Lung: Clear on auscultation bilaterally, no wheeze, rale, rhonchi. GI: Abdominal soft, nondistended, nontenderness, positive bowel sounds. Extremity: No crepitus, cyanosis, edema. Pedal pulses present bilateral. Full range of motion. Skin: Normal turgor, no rash. Psych: Alert, oriented x3. Neurology: No focal deficits, cranial nerve II to XII grossly intact. This medical document was created using an electronic medical record system with [employer] direct computerized dictation system. Although this document has been carefully reviewed, there may still be some phonetic and typographical errors. These areas are purely typographical due to imperfections of the software programs, and do not reflect any compromise in the patient's medical care. Condition at Discharge: Guarded Final Diagnosis/Problems List Breakthrough seizure Acute kidney injury Leukocytosis,? Reactive Discharge Disposition: AMA Discharge Instruct/Medications Scheduled Levetiracetam (Keppra), 500 MG PO TID, (Reported) Phenytoin Sodium (Dilantin Capsule), 100 MG PO DAILY, (Reported) Discharge Statement: "Patient was advised to return to the ER or call 911 if any headaches, dizziness, shortness of breath, chest pain, abdominal pain, bleeding, fevers, or worsening of medical condition. Patient was counseled about treatment plan, medications, possible side effects, patientverbalized understanding. All questions were answered to the best of my ability. This discharge took greater then 30 minutes in planning, reviewing documentation, counseling the patient, and discussing with other team members." ASSESSMENT ASSESSMENT Assessment Date of Service: Jul 10, 2025 Billing Provider: CATHY MONTALVO MD Common Visit Codes: 27046-FIG/OBS SAME DATE (HIGH) CATHY MONTALVO MD Jul 10, 2025 11:44
[2025-07-10] MEDS ORDERED: PATIENTS OWN MEDICATION (keppra 750 MG) IV SCH (22:00)
[2025-07-10] MEDS ORDERED: VALPROATE INJ 500 MG in SODIUM CHL 0.9% 100 ML IV SCH (22:00)
[2025-07-10] MEDS ORDERED: LAMICTAL 200 MG PO SCH (22:00)
--- NOTE | 2025-07-11 11:36 | ECG ---
[facility] Test Date: 2025-07-09 Test Time: 21:23:10 Pat Name: EWELINA ALCARAZ Department: [facility] ED Patient ID: [id number] Room: [address] [place] [address] Gender: M Trapeze Performer: jay : 1995 Requested By: CHANDRIKA COYNE Order Number: [id number] Reading MD: Alberto Mackenzie Measurements Intervals Dorado Rate: 100 P: 69 NH: 144 QRS: 19 QRSD: 91 T: 59 QT: 336 QTc: 434 Interpretive Statements Sinus tachycardia Consider right atrial enlargement Electronically Signed On 07-14-2025 10:17:45 PDT by Alberto Mackenzie Please click the below link to view image of tracing.
== END 2025-07-10 12:59 | disposition left against medical advice (07) | DRG 53 ==
LOC: ER 20:59 → OVERFLOW 07-10 00:49
PROVIDERS: ADMIT Internal Medicine; ATTEND Internal Medicine
DX: G40.401 Other generalized epilepsy and epileptic syndromes, not intractable, with status epilepticus (principal); N17.0 Acute kidney failure with tubular necrosis; R65.10 Systemic inflammatory response syndrome (SIRS) of non-infectious origin without acute organ dysfunction; D72.829 Elevated white blood cell count, unspecified; Z53.29 Procedure and treatment not carried out because of patient's decision for other reasons; R73.9 Hyperglycemia, unspecified; Z79.899 Other long term (current) drug therapy
CPT/HCPCS: 36415; 70450; 80048; 80053; 80185; 80307; 80320; 83735; 85025; 93005; 96365; 96375; 99291; G0378

== ENCOUNTER 2025-07-20 21:15 | Inpatient (IN) | payer MEDICAID ==
[~2025-07-20] VITALS: Ht 167.6 cm; Wt 86.0 kg
--- NOTE | 2025-07-20 21:46 | ED.PDOC ---
History of Present Illness HPI Comments 30-year-old male who presents with chief complaint of seizure. Per nursing staff notes, patient was in the process of checking himself in into ED triage when he has sudden onset of seizure episode. No signs of trauma incontinence. Further history is limited, due to patient's current condition and absence of family/official greeter historians. REVIEW OF SYSTEMS: General: No fever, no chills, or fatigue HEENT: No sore throat, no earache, no congestion, no neck pain. Cardiac: No chest pain. No palpitations. Lungs: No shortness of breath, no cough. GI: No nausea, no vomiting, no diarrhea, no constipation, no abdominal pain : No dysuria, frequency, or urgency. No hematuria. Musculoskeletal: No joint pain , no joint swelling, no extremity edema. Skin: No rash, no itching. Neuro: Seizure. No headache, no dizziness, no weakness PHYSICAL EXAM: General: Awake, alert and oriented. No acute distress. Skin: Skin in warm, dry and intact. Appropriate color for ethnicity. HEENT: The head is normocephalic and atraumatic. Conjunctivae are clear without exudates or hemorrhage. Sclera is non-icteric. EOM are intact. No signs of nystagmus. Eyelids are normal in appearance without swelling or lesions. Oral mucosa is pink and moist Neck: The neck is supple with normal range of motion. No JVD. Cardiac: Heart rate tachycardic and rhythm are normal. No murmurs, gallops, or rubs are auscultated. Respiratory: No signs of respiratory distress. Lung sounds are clear in all lobes bilaterally without rales, rhonchi, or wheezes. Abdominal: Abdomen is soft, non-tender without distention, guarding or rigidity. Bowel sounds are present and normoactive in all four quadrants. Extremities: Upper and lower extremities are atraumatic in appearance without deformity or edema. Neurological: Diaphoretic, responsive the pain. Psychiatric: Appropriate mood and affect. Good judgement and insight. Chief Complaint: Seizure Time Seen by MD: 21:33 Reviewed Notes: Nurses Notes, Medications, Allergies Allergies: Coded Allergies: NO KNOWN ALLERGIES (Unverified , 06/26/25) Home Meds Reported Medications Phenytoin Sodium (DILANTIN CAPSULE) 100 Mg Cp, 100 MG PO DAILY, CAP 06/27/25 Levetiracetam (Keppra) 500 Mg Tab, 500 MG PO TID for 30 Days, MG 06/27/25 Information Source: Patient Mode of Arrival: Ambulatory Past Medical History PAST MEDICAL HISTORY: Seizures Surgical History: Denies all surgeries Social History Smoker: Non-Smoker Alcohol: Denies ETOH Use Drugs: Marijuana Was a procedure done? Was a procedure done?: No Differential Dx Considerations may include: Differential diagnoses considered include but are not limited to epilepsy/seizure disorder, MINE SAFETY ENGINEER infection, electrolyte disturbance, CVA, TBI, drug toxicity or overdose, hypoxia, hypertensive emergency, brain tumor/mass, syncope, movement disorder, other X-Ray, Labs, Meds, VS Vital Signs Date Time Temp Pulse Resp B/P (MAP) Pulse Ox O2 Delivery O2 Flow Rate FiO2 07/21/25 03:28 107 18 142/86 (104) 99 07/21/25 01:06 99 19 130/78 (95) 96 07/20/25 23:37 Room Air* 0 21 07/20/25 23:33 98.3 108 21 112/65 (81) 96 98.3 07/20/25 21:37 97.5 123 29 124/45 99 97.5 Lab Test 07/20/25 22:17 07/20/25 22:08 Range/Units Urine Color Colorless Yellow Urine Clarity Clear Clear Urine pH 5.5 5.0-9.0 Urine Specific Pritchett 1.008 1.001-1.035 Urine Protein 1+ H Negative Urine Ketones Negative Negative Urine Blood Trace H Negative /uL Urine Nitrite Negative Negative Urine Bilirubin Negative Negative Urine Urobilinogen Normal Negative mg/dL Urine Leukocyte Esterase Negative Negative /uL Urine RBC 1 0 - 3 /hpf Urine Microscopic WBC 2 0-3 /HPF Urine Squamous Epithelial Cells None seen <5 /hpf Urine Bacteria None seen None Seen /hpf Urine Hyaline Casts Few 0 - 2 /lpf Urine Sperm Present None Seen /hpf Urine Glucose Normal Normal mg/dL Urine Opiates Screen Neg NEGATIVE Urine Fentanyl Screen Neg NEGATIVE Urine Barbiturates Screen Neg NEGATIVE Urine Phencyclidine Screen Neg NEGATIVE Urine Amphetamines Screen Pos NEGATIVE Urine Benzodiazepines Screen Neg NEGATIVE Urine Cocaine Screen Neg NEGATIVE Urine Cannabinoids Screen Pos NEGATIVE White Blood Count 15.3 H 4.4-10.8 10^3/uL Red Blood Count 4.81 4.5-5.90 10^6/uL Hemoglobin 15.0 13.5-17.5 g/dL Hematocrit 46.1 41.0-53.0 % Mean Corpuscular Volume 95.8 80.0-100.0 fL Mean Corpuscular Hemoglobin 31.2 28.0-32.0 pg Mean Corpuscular Hemoglobin Concent 32.6 32.0-36.0 g/dL Red Cell Distribution Width 16.2 H 11.8-14.3 % Platelet Count 389 140-450 10^3/uL Mean Platelet Volume 8.4 6.9-10.8 fL Neutrophils (%) (Auto) 73.4 37.0-80.0 % Lymphocytes (%) (Auto) 15.4 10.0-50.0 % Monocytes (%) (Auto) 11.1 0.0-12.0 % Eosinophils (%) (Auto) 0.0 0.0-7.0 % Basophils (%) (Auto) 0.1 0.0-2.0 % Neutrophils # (Auto) 11.2 H 1.6-8.6 10 ^3/uL Lymphocytes # (Auto) 2.4 0.4-5.4 10 ^3/uL Monocytes # (Auto) 1.7 H 0-1.3 10 ^3/uL Eosinophils # (Auto) 0 0-0.8 10 ^3/uL Basophils # (Auto) 0 0-0.2 10 ^3/uL Nucleated Red Blood Cells 0.4 % Troponin I High Sensitivity 44 </=54 ng/L [place] [address] Ph: [phone] DIAGNOSTIC IMAGING Diagnostic Imaging Report : [id number] Signed PATIENT: EWELINA ALCARAZ ACCT: [id number] UNIT: [id number] : 1995 LOC: ER ROOM / BED: / AGE / SEX: 30 / M ADM STATUS: REG ER SERVICE 16 ORDERING PHYSICIAN: ERIK ABAD MD PROCEDURE(s): HWOCT - HEAD WITHOUT CONTRAST REASON: Seizure ORDER NUMBER(s): [id number], ACCESSION NUMBER(s): [id number] EXAM: CT HEAD WITHOUT CONTRAST INDICATION: Seizure TECHNIQUE: CT of the head without intravenous contrast. Radiation Dose : 1. Head: CT Dose: CTDI volume is 32.7 mGy. Dose-length product is 559.79 mGy*cm The dose indicators for CT are the volume Computed Tomography (CT) Dose Index (CTDIvol) and the Dose Length Product (DLP), and are measured in units of mGy and mGy-cm, respectively. These indicators are not patient dose, but values generated from the CT scanner acquisition factors. The report includes radiation exposure data for exposures received during this examination. COMPARISON: CT HEAD WITHOUT CONTRAST on DOS: 07/09/25, CT HEAD WITHOUT CONTRAST on DOS: 06/27/25 FINDINGS: Brain: No acute hemorrhage, mass effect, or cerebral edema. CSF Spaces: Size and morphology within normal limits. Bones/Soft Tissues: No acute findings. Orbits/Sinuses/Mastoids: Trace left mastoid opacification, otherwise unremarkabl e as visualized. IMPRESSION: 1. No acute intracranial abnormality or significant change from recent comparison exams. Radiation optimization: All CT scans at this facility use at least one of these dose optimization techniques: automated exposure control mA and/or kV adjustment per patient size (includes targeted exams where dose is matched to clinical indication) or iterative reconstruction. ATED BY: ARY LAI MD DICTATED DATE/TIME: 07/20/252302 SIGNED BY: ARY LAI MD SIGNED DATE/TIME: 07/20/252302 CC: Time of 1ST Reevaluation: 22:00 Reevaluation 1ST: Unchanged Patient Education/Counseling: Treatment Family Education/Counseling: No Family Present SEPSIS Sepsis Screen Date sepsis recognized/suspect: Jul 20, 2025 Time Sepsis recognized/suspect: 2129 Recent Procedure: No On Antibiotic Therapy: No Respiratory Rate >20: No Heart Rate >90: Yes Temp<36 C (96.8 F) or >38.3 C: No SBP <90 or MAP <65 mmHG: No New Acute Mental Status Change: No Is the patient on CPAP, BIPAP,: No Physician Orders Seizure Precautions (07/20/25 ) Titrate Oxygen (07/20/25 21:34) Oxygen (07/20/25 ) Continous Pulse Oximetry (07/20/25 21:34) Saline Lock (07/20/25 21:34) Blade Bender Furnace Tender (07/20/25 ) Electrocardigram (07/20/25 21:34) Blood Glucose Assessment (07/20/25 21:41) Head Without Contrast (07/20/25 22:17) Vital Signs Date Time Temp Pulse Resp B/P (MAP) Pulse Ox O2 Delivery O2 Flow Rate FiO2 07/21/25 03:28 107 18 142/86 (104) 99 07/21/25 01:06 99 19 130/78 (95) 96 07/20/25 23:37 Room Air* 0 21 07/20/25 23:33 98.3 108 21 112/65 (81) 96 98.3 07/20/25 21:37 97.5 123 29 124/45 99 97.5 Laboratory Tests Test 07/20/25 22:08 White Blood Count 15.3 10^3/uL (4.4-10.8) H Departure 1 Departure Time of Disposition: 00:07 Impression: Primary Impression: Seizure Additional Impression: Altered mental status Disposition: ADMITTED INPATIENT Condition: Stable Comments MDM: Patient admitted to hospitalist service for further treatment, evaluation and monitoring. Extensive evaluation was performed in attempt to identify or rule out: (See differential diagnosis section) The following tests were ordered, and results were reviewed by me and discussed with patient: (See diagnostic results section) The following test were independently interpreted by me: N/A I reviewed and agreed with the following test results read by other providers: CT head without contrast I reviewed the following notes from the pt's past medical encounters: June 26 2025 and July 10, 2025 encounters for seizures Decision regarding hospitalization or escalation of hospital level of care: Risk and benefits of admission for further treatment of patient's condition was considered. Due to patient's current clinical condition, high risk of decline and poor outcome if discharged and need for further inpatient management and monitoring, patient will be admitted to the hospital. Critical Care Note Critical Care Time?: No Stability Stability form required: No Heart Score Heart Score: Heart Score Response (Comments) Value History N/A 0 EKG N/A 0 Age N/A 0 Risk Factors N/A 0 Troponin N/A 0 Total 0 I personally scribed for ERIK ABAD MD ([email or web address]) on 07/20/25 at 21:46. Electronically submitted by Enrique Valencia ([email or web address]). I personally scribed for ERIK ABAD MD ([email or web address]) on 07/21/25 at 00:18. Electronically submitted by Enrique Valencia ([email or web address]). I personally scribed for ERIK ABAD MD ([email or web address]) on 07/21/25 at 00:19. Electronically submitted by Enrique Valencia ([email or web address]). ERIK ABAD MD Jul 20, 2025 21:46
[2025-07-20] MEDS: levETIRAcetam 1000 mg/100ml 100 ML IV ONE (21:58)
[2025-07-20] MEDS: SODIUM CHLORIDE 0.9% 1,000 ML IV ONE (21:58)
[2025-07-20 22:33] LABS: Hematocrit 46.1 % (41.0-53.0); Hemoglobin 15.0 g/dL (13.5-17.5); Mean Corpuscular Hemoglobin 31.2 pg (28.0-32.0); Mean Corpuscular Volume 95.8 fL (80.0-100.0); Nucleated Red Blood Cells % 0.4 %
--- NOTE | 2025-07-20 23:05 | DVH ---
EXAM: CT HEAD WITHOUT CONTRAST INDICATION: Seizure TECHNIQUE: CT of the head without intravenous contrast. Radiation Dose : 1. Head: CT Dose: CTDI volume is 32.7 mGy. Dose-length product is 559.79 mGy*cm The dose indicators for CT are the volume Computed Tomography (CT) Dose Index (CTDIvol) and the Dose Length Product (DLP), and are measured in units of mGy and mGy-cm, respectively. These indicators are not patient dose, but values generated from the CT scanner acquisition factors. The report includes radiation exposure data for exposures received during this examination. COMPARISON: CT HEAD WITHOUT CONTRAST on DOS: 07/09/25, CT HEAD WITHOUT CONTRAST on DOS: 06/27/25 FINDINGS: Brain: No acute hemorrhage, mass effect, or cerebral edema. CSF Spaces: Size and morphology within normal limits. Bones/Soft Tissues: No acute findings. Orbits/Sinuses/Mastoids: Trace left mastoid opacification, otherwise unremarkable as visualized. IMPRESSION: 1. No acute intracranial abnormality or significant change from recent comparison exams. Radiation optimization: All CT scans at this facility use at least one of these dose optimization cat hniques: automated exposure control mA and/or kV adjustment per patient size (includes targeted exam s where dose is matched to clinical indication) or iterative reconstruction.
[2025-07-21 00:11] LABS: Cannabinoid Screen, Urine Pos (NEGATIVE)
[2025-07-21 00:15] LABS: Amphetamine Screen, Urine Pos (NEGATIVE); Barbiturate Scree,Urine Neg (NEGATIVE); Benzodiazephine Screen, Urine Neg (NEGATIVE); Cocaine Screen, Urine Neg (NEGATIVE); Opiate Scree,Urine Neg (NEGATIVE); Phencyclidine Screen, Urine Neg (NEGATIVE)
[2025-07-21 00:22] LABS: Urine Protein, UAD 1+ (Negative)
[2025-07-21] MEDS ORDERED: LORazepam 2MG/ML-1ML VIAL IV PRN (03:45)
[2025-07-21] MEDS ORDERED: ONDANSETRON HCL 4 MG/2 ML VIAL IV PRN (03:45)
--- NOTE | 2025-07-21 04:48 | DVHHP2 ---
History of Present Illness Reason for Visit: Seizure History of Present Illness 30-year-old male presents for evaluation of seizure activity. Patient reports having a seizure episode at home and when checking in in the emergency department he had another witnessed seizure. Currently he is lethargic complaining of a frontal headache. No blurred vision or unilateral weakness. No chest pain or shortness for breath. No oral trauma Past Medical History Seizures Past Surgical History Denies Family History Noncontributory Smoke: No ALCOHOL: occassional Drugs: Marijuana, Other (Amphetamines) Review of Systems Review of Systems Review of systems are currently negative otherwise addressed in HPI. Allergies: Coded Allergies: NO KNOWN ALLERGIES (Unverified , 06/26/25) Medications Current Medications Medications Dose Ordered Sig/Nayan Route Start Time Stop Time Status Last Admin Dose Admin Lorazepam 1 mg Q5MINP PRN IV 07/21/25 03:45 Ondansetron HCl 4 mg Q4HP PRN IV 07/21/25 03:45 Acetaminophen 650 mg Q6HP PRN PO 07/21/25 03:45 Exam Vital Signs Vital Signs Date Time Temp Pulse Resp B/P (MAP) Pulse Ox O2 Delivery O2 Flow Rate FiO2 07/21/25 04:12 98.0 96 12 119/57 (77) 95 98.0 07/20/25 23:37 Room Air* 0 21 Exam Gen: 30-year-old male in mild distress Skin: Warm, dry, normal color and texture, no rash. HEENT: Normocephalic atraumatic, mucous membranes moist and pink. Neck: Cervical and supraclavicular nodes normal without enlargement, trachea is midline, thyroid gland is normal without masses. Pulmonary: Clear to auscultation and percussion bilaterally. Cardiac: Regular rate and rhythm. No murmur Abdomen: Soft, nontender, nondistended, bowel sounds present all 4 quadrants, no guarding, no rigidity, no organomegaly. Extremities: No cyanosis, clubbing, no edema Neuro: Cranial nerves II through XII grossly intact, normal affect and speech, n o focal motor deficits. Labs/Xrays ORDERING PHYSICIAN: ERIK ABAD MD PROCEDURE(s): HWOCT - HEAD WITHOUT CONTRAST REASON: Seizure ORDER NUMBER(s): [id number], ACCESSION NUMBER(s): [id number] EXAM: CT HEAD WITHOUT CONTRAST INDICATION: Seizure TECHNIQUE: CT of the head without intravenous contrast. Radiation Dose : 1. Head: CT Dose: CTDI volume is 32.7 mGy. Dose-length product is 559.79 mGy*cm The dose indicators for CT are the volume Computed Tomography (CT) Dose Index (CTDIvol) and the Dose Length Product (DLP), and are measured in units of mGy and mGy-cm, respectively. These indicators are not patient dose, but values generated from the CT scanner acquisition factors. The report includes radiation exposure data for exposures received during this examination. COMPARISON: CT HEAD WITHOUT CONTRAST on DOS: 07/09/25, CT HEAD WITHOUT CONTRAST on DOS: 06/27/25 FINDINGS: Brain: No acute hemorrhage, mass effect, or cerebral edema. CSF Spaces: Size and morphology within normal limits. Bones/Soft Tissues: No acute findings. Orbits/Sinuses/Mastoids: Trace left mastoid opacification, otherwise unremarkable as visualized. IMPRESSION: 1. No acute intracranial abnormality or significant change from recent comparison exams. Radiation optimization: All CT scans at this facility use at least one of these dose optimization techniques: automated exposure control mA and/or kV adjustment per patient size (includes targeted exams where dose is matched to clinical indication) or iterative reconstruction. Labs Test 07/21/25 00:00 07/20/25 22:17 07/20/25 22:08 Range/Units Urine Color Colorless Yellow Urine Clarity Clear Clear Urine pH 5.5 5.0-9.0 Urine Specific [place] 1.008 1.001-1.035 Urine Protein 1+ H Negative Urine Ketones Negative Negative Urine Blood Trace H Negative /uL Urine Nitrite Negative Negative Urine Bilirubin Negative Negative Urine Urobilinogen Normal Negative mg/dL Urine Leukocyte Esterase Negative Negative /uL Urine RBC 1 0 - 3 /hpf Urine Microscopic WBC 2 0-3 /HPF Urine Squamous Epithelial Cells None seen <5 /hpf Urine Bacteria None seen None Seen /hpf Urine Hyaline Casts Few 0 - 2 /lpf Urine Sperm Present None Seen /hpf Urine Glucose Normal Normal mg/dL Urine Opiates Screen Neg NEGATIVE Urine Fentanyl Screen Neg NEGATIVE Urine Barbiturates Screen Neg NEGATIVE Urine Phencyclidine Screen Neg NEGATIVE Urine Amphetamines Screen Pos NEGATIVE Urine Benzodiazepines Screen Neg NEGATIVE Urine Cocaine Screen Neg NEGATIVE Urine Cannabinoids Screen Pos NEGATIVE White Blood Count 15.3 H 4.4-10.8 10^3/uL Red Blood Count 4.81 4.5-5.90 10^6/uL Hemoglobin 15.0 13.5-17.5 g/dL Hematocrit 46.1 41.0-53.0 % Mean Corpuscular Volume 95.8 80.0-100.0 fL Mean Corpuscular Hemoglobin 31.2 28.0-32.0 pg Mean Corpuscular Hemoglobin Concent 32.6 32.0-36.0 g/dL Red Cell Distribution Width 16.2 H 11.8-14.3 % Platelet Count 389 140-450 10^3/uL Mean Platelet Volume 8.4 6.9-10.8 fL Neutrophils (%) (Auto) 73.4 37.0-80.0 % Lymphocytes (%) (Auto) 15.4 10.0-50.0 % Monocytes (%) (Auto) 11.1 0.0-12.0 % Eosinophils (%) (Auto) 0.0 0.0-7.0 % Basophils (%) (Auto) 0.1 0.0-2.0 % Neutrophils # (Auto) 11.2 H 1.6-8.6 10 ^3/uL Lymphocytes # (Auto) 2.4 0.4-5.4 10 ^3/uL Monocytes # (Auto) 1.7 H 0-1.3 10 ^3/uL Eosinophils # (Auto) 0 0-0.8 10 ^3/uL Basophils # (Auto) 0 0-0.2 10 ^3/uL Nucleated Red Blood Cells 0.4 % Troponin I High Sensitivity 44 </=54 ng/L SEPSIS Sepsis Screen Date sepsis recognized/suspect: Jul 20, 2025 Time Sepsis recognized/suspect: 2129 Recent Procedure: No On Antibiotic Therapy: No Respiratory Rate >20: No Heart Rate >90: Yes Temp<36 C (96.8 F) or >38.3 C: No SBP <90 or MAP <65 mmHG: No New Acute Mental Status Change: No Is the patient on CPAP, BIPAP,: No Physician Orders Comprehensive Metabolic Panel (07/20/25 21:34) Seizure Precautions (07/20/25 ) Titrate Oxygen (07/20/25 21:34) Oxygen (07/20/25 ) Continous Pulse Oximetry (07/20/25 21:34) Saline Lock (07/20/25 21:34) Wood Carving Machine Operator (07/20/25 ) Electrocardigram (07/20/25 21:34) Blood Glucose Assessment (07/20/25 21:41) Head Without Contrast (07/20/25 22:17) * Neurology Consult (07/21/25 03:32) Seizure Precautions In Place (07/21/25 03:32) Lorazepam 2mg/Ml Inj (Ativan Inj) (07/21/25 03:45) Condition: Stable (07/21/25 03:32) Acetaminophen Tablet (Tylenol Tablet) (07/21/25 03:45) Bedrest With Bathroom Privileg (07/21/25 03:32) Admit (07/21/25 03:32) Ondansetron Hcl (Zofran) (07/21/25 03:45) Vital Signs Date Time Temp Pulse Resp B/P (MAP) Pulse Ox O2 Delivery O2 Flow Rate FiO2 07/21/25 04:12 98.0 96 12 119/57 (77) 95 98.0 07/21/25 03:28 107 18 142/86 (104) 99 07/21/25 01:06 99 19 130/78 (95) 96 07/20/25 23:37 Room Air* 0 21 07/20/25 23:33 98.3 108 21 112/65 (81) 96 98.3 07/20/25 21:37 97.5 123 29 124/45 99 97.5 Laboratory Tests Test 07/20/25 22:08 White Blood Count 15.3 10^3/uL (4.4-10.8) H Medications Medications Dose Ordered Sig/Nayan Route Start Time Stop Time Status Last Admin Dose Admin Levetiracetam 100 ml @ 400 mls/hr ONCE ONCE IV 07/20/25 21:45 07/20/25 21:59 DC 07/20/25 21:58 400 MLS/HR Sodium Chloride 1,000 ml @ 1,000 mls/hr Q1H ONCE IV 07/20/25 21:45 07/20/25 22:44 DC 07/20/25 21:58 1,000 MLS/HR Assessment/Plan Assessment/Plan Assessment Breakthrough seizure Polysubstance abuse Plan Admit the patient to Med surge to the hospitalist Seizure precautions in place Nephrology consultation Resume home medications Continue treatment per orders. Plan discussed with: Patient My Orders Orders - MARCIAL CERNA Procedure Category Date Status Time * Neurology Consult CONS 07/21/25 Transmitted 03:32 Seizure Precautions MARY 07/21/[address] 03:32 Lorazepam 2mg/Ml Inj PHA 07/21/25 In Process (Ativan Inj) 03:45 Condition: Stable MARY 07/21/25 In Process 03:32 Acetaminophen Tablet PHA 07/21/25 In Process (Tylenol Tablet) 03:45 Bedrest With Bathroom MARY 07/21/25 In Process Privileg 03:32 Admit ADMIT 07/21/25 Verified 03:32 Ondansetron Hcl PHA 07/21/25 In Process (Zofran) 03:45 Date of Service: Jul 21, 2025 Billing Provider: MARCIAL CERNA Common Visit Codes: [id number] INP/OBS CARE (HIGH) MARCIAL CERNA Jul 21, 2025 04:48
[2025-07-21] MEDS: PHENYTOIN SODIUM 100 MG CAP PO SCH ×2 (05:38→22:22)
[2025-07-21 07:15] VITALS: PULSE 95; RESP 16; O2SAT 95
[2025-07-21] MEDS: ACETAMINOPHEN 325 MG TAB PO PRN (08:59)
--- NOTE | 2025-07-21 09:13 | DVHINCON2 ---
Date of service: Jul 21, 2025 Referring Physician Shekhar Reason for Consultation Breakthrough seizure History of Present Illness Mr. Marcum is a 30 years old right-handed gentleman with a history of seizure disorder, he was dropped off by somebody to the [facility] ER on 07/09/2025 because he had multiple seizures. At this time, he is awake, oriented x3, but is not a good historian. I saw him on 07/10/2025 for seizure He tells me he was at his own apartment, but the next memory was waking up in the emergency room confused, he did not have biting to his tongue/mouth, or incontinence He reports a seizure disorder since [employer] high, with complete amnesia about his symptoms, he remembers people said he had grand mal seizure, and he remembers biting to his tongue and incontinence during the seizure attacks, he does not know how often he has seizures, he does not remember his family doctor's name, he used to see a specialist for his seizure in [place]. He has seizure a least twice monthly He is on phenytoin 50 mg t.i.d., Keppra 500 mg t.i.d. and he reports a good compliance, according to our record, he is on Keppra 500 mg t.i.d., Dilantin 100 mg daily According to the External medication history, he should be on: Depakote 500 mg b.i.d., lamotrigine 200 mg b.i.d., Keppra 500 mg b.i.d. UDS, 07/09/2025: Cannabinoids, 07/20/2025: Amphetamine, cannabinoids Plasma alcohol, 07/09/2025: < three Dilantin, 07/09/2025: <2, 07/21/25: <2 WBC/HB/PLT/MCV, 07/10/25: 13.2/15.5/268/87.8, 07/20/2025: 15.3/15/389/95.8 HCO3, 07/09/2025: 11, 07/10/2025: 25 TBI/AST/ALT/AP, 07/09/2025: 0.3/43/50/66 CT head, 07/09/2025: No acute intracranial abnormality CT head, 07/20/2025: No acute intracranial abnormality or significant change from recent comparison exams. Past Medical History Seizures Past Surgical History No major surgeries Social History He smokes tobacco, marijuana, but no history of drug/alcohol abuse. He is not licensed to drive Allergies: Coded Allergies: NO KNOWN ALLERGIES (Unverified , 06/26/25) Home Meds Reported Medications Phenytoin Sodium (DILANTIN CAPSULE) 100 Mg Cp, 100 MG PO DAILY, CAP 06/27/25 Levetiracetam (Keppra) 500 Mg Tab, 500 MG PO TID for 30 Days, MG 06/27/25 Current Medications Current Medications Medications (Trade) Dose Ordered Sig/Nayan Route PRN Reason Start Time Stop Time Status Last Admin Lorazepam (Ativan Inj) 1 mg Q5MINP PRN IV SEIZURES 07/21/25 03:45 Ondansetron HCl (Zofran) 4 mg Q4HP PRN IV NAUSEA / VOMITING 07/21/25 03:45 Acetaminophen (Tylenol Tablet) 650 mg Q6HP PRN PO PAIN SCALE 1-3 OR TEMP>100.4 07/21/25 03:45 07/21/25 08:59 Phenytoin Sodium (Dilantin Capsule) 100 mg Q8HR PO 07/21/25 06:00 07/21/25 05:38 Levetiracetam (Keppra Tablet) 500 mg BID PO 07/21/25 10:00 Olanzapine (ZyPREXA Tablet) 10 mg DAILY PO 07/21/25 10:00 Review of Systems As above, the other systems are negative Vital Signs Vital Signs Date Time Temp Pulse Resp B/P (MAP) Pulse Ox O2 Delivery O2 Flow Rate FiO2 07/21/25 07:15 98.3 95 16 122/73 (89) 95 98.3 07/21/25 07:15 Room Air* 0 21 Physical Exam GENERAL EXAM: General: the patient is well developed and nourished. No acute distress. HEENT: Normocephalic, neck is supple, no carotid bruits. No mass. RESPIRATORY: Normal respiratory effort with symmetrical lung expansion. Lungs clear to auscultation. CARDIOVASCULAR: Regular rate and rhythm with no murmurs. S1, S2. ABDOMEN: Soft, nontender, normal bowel sound NEUROLOGICAL: MENTAL STATUS: Awake and alert. Oriented to person, place, time , historian SPEECH, LANGUAGE, HIGHER CORTICAL FUNCTION: no aphasia or dysathria. CRANIAL NERVES: #2: Intact visual cage to confrontation. The optic discs were sharp. #3,4,6: Pupils are equal, round and reactive. EOMs full and conjugate. Nod nystagmus. #5: Facial sensation intact in all three divisions bilaterally. Mandibular strength intact. #7: Facial muscles symmetrical and strength intact. #8: Hearing grossly normal to voice. #9,10: Uvula and soft palate rise in the midline. Swallow and voice are normal. #11: Trapezius and sternomastoid strength intact bilaterally. #12: Tongue midline. No fasciculations or atrophy. SENSATION: Sensation to touch and pinprick is normal. MOTOR: Normal tone in the upper and lower extremity. Normal muscle bulk. No fasciculations. No abnormal movements or posturing. Muscle strength of the major groups in the upper extremities is 5/5. Muscle strength of the major groups in the lower extremities is 5/5. REFLEXES: Deep tendon reflexes normal and symmetrical. No pathological reflexes. CEREBELLAR/COORDINATION: Finger to nose and heel to cagle are normal bilaterally. GAIT/STATION: deferred Labs/Diagnostic Data Labs Test 07/21/25 08:44 07/21/25 08:23 07/20/25 22:17 07/20/25 22:08 Range/Units POC Glucose 112 H 70-106 mg/dl Urine Color Colorless Yellow Urine Clarity Clear Clear Urine pH 5.5 5.0-9.0 Urine Specific [place] 1.008 1.001-1.035 Urine Protein 1+ H Negative Urine Ketones Negative Negative Urine Blood Trace H Negative /uL Urine Nitrite Negative Negative Urine Bilirubin Negative Negative Urine Urobilinogen Normal Negative mg/dL Urine Leukocyte Esterase Negative Negative /uL Urine RBC 1 0 - 3 /hpf Urine Microscopic WBC 2 0-3 /HPF Urine Squamous Epithelial Cells None seen <5 /hpf Urine Bacteria None seen None Seen /hpf Urine Hyaline Casts Few 0 - 2 /lpf Urine Sperm Present None Seen /hpf Urine Glucose Normal Normal mg/dL Urine Opiates Screen Neg NEGATIVE Urine Fentanyl Screen Neg NEGATIVE Urine Barbiturates Screen Neg NEGATIVE Urine Phencyclidine Screen Neg NEGATIVE Urine Amphetamines Screen Pos NEGATIVE Urine Benzodiazepines Screen Neg NEGATIVE Urine Cocaine Screen Neg NEGATIVE Urine Cannabinoids Screen Pos NEGATIVE White Blood Count 15.3 H 4.4-10.8 10^3/uL Red Blood Count 4.81 4.5-5.90 10^6/uL Hemoglobin 15.0 13.5-17.5 g/dL Hematocrit 46.1 41.0-53.0 % Mean Corpuscular Volume 95.8 80.0-100.0 fL Mean Corpuscular Hemoglobin 31.2 28.0-32.0 pg Mean Corpuscular Hemoglobin Concent 32.6 32.0-36.0 g/dL Red Cell Distribution Width 16.2 H 11.8-14.3 % Platelet Count 389 140-450 10^3/uL Mean Platelet Volume 8.4 6.9-10.8 fL Neutrophils (%) (Auto) 73.4 37.0-80.0 % Lymphocytes (%) (Auto) 15.4 10.0-50.0 % Monocytes (%) (Auto) 11.1 0.0-12.0 % Eosinophils (%) (Auto) 0.0 0.0-7.0 % Basophils (%) (Auto) 0.1 0.0-2.0 % Neutrophils # (Auto) 11.2 H 1.6-8.6 10 ^3/uL Lymphocytes # (Auto) 2.4 0.4-5.4 10 ^3/uL Monocytes # (Auto) 1.7 H 0-1.3 10 ^3/uL Eosinophils # (Auto) 0 0-0.8 10 ^3/uL Basophils # (Auto) 0 0-0.2 10 ^3/uL Nucleated Red Blood Cells 0.4 % Troponin I High Sensitivity 44 </=54 ng/L Assessment Status epileptics Grand mal seizure I suspect poor compliance Plan/Recommendation Monitoring Supportive treatment [facility] the [facility] Dilantin 1000 mg IV x1 Keppra 500 mg b.i.d. Dilantin 300 mg q.d. Seizure triggers discussed Prognosis: Poor This medical document was created using an electronic medical record system with Elliptic dictation system. Although this document has been carefully reviewed, there may still be some phonetic and typographical errors. These areas are purely typographical due to imperfections of the software programs, and do not reflect any compromise in the patient's medical care. Plan discussed with: Patient, Other RAMÓN ROSALES MD Jul 21, 2025 09:13
[2025-07-21 09:17] LABS: Albumin 4.3 g/dL (3.2-4.8); Alkaline Phosphatase 48 U/L (46-116); Anion Gap 12 (5-15); BUN/Creatinine Ratio 8.0 (10.0-20.0); Bilirubin, Total 0.4 mg/dL (0.2-1.0); Blood Urea Nitrogen 9 mg/dL (9-23); Calcium 9.3 mg/dL (8.7-10.4); Carbon Dioxide 26 mmol/L (20-31); Chloride 103 mmol/L (98-107); Glucose 99 mg/dL (74-106); Sodium 141 mmol/L (136-145); Total Protein 6.8 g/dL (5.7-8.2)
[2025-07-21 09:18] LABS: Alanine Aminotransferase 49 U/L (7-40); Potassium 3.3 mmol/L (3.5-5.1)
[2025-07-21] MEDS: ACETAMINOPHEN 325 MG TAB PO ONE (09:21)
[2025-07-21] MEDS: levETIRAcetam 500 MG TAB ONE (10:14)
[2025-07-21] MEDS: OLANZapine 5 MG TAB ONE (10:14)
[2025-07-21] MEDS: levETIRAcetam 500 MG TAB PO SCH (10:14)
[2025-07-21] MEDS: OLANZapine 5 MG TAB PO SCH (10:14)
[2025-07-21] MEDS: PHENYTOIN IV DILANTIN 1,000 MG in SODIUM CHL 0.9% 250 ML IV ONE (12:35)
[2025-07-21 15:13] VITALS: PULSE 99; RESP 19; O2SAT 95
[2025-07-21 15:30] VITALS: BP 124/80; PULSE 102; RESP 20; TEMP 98.2; O2SAT 99
[2025-07-21 17:00] VITALS: BP 124/80; PULSE 103; RESP 20; TEMP 98.2; O2SAT 99
[2025-07-21 20:00] VITALS: PULSE 104; RESP 18; O2SAT 95
[2025-07-21 20:58] VITALS: BP 103/51; PULSE 104; RESP 16; TEMP 99.4; O2SAT 92
[2025-07-22 00:55] VITALS: BP 101/57; PULSE 101; RESP 16; TEMP 99; O2SAT 100
[2025-07-22 05:00] VITALS: BP 103/53; PULSE 78; RESP 16; TEMP 98.1; O2SAT 93
[2025-07-22 08:00] VITALS: PULSE 100; RESP 18; O2SAT 96
[2025-07-22 09:00] VITALS: BP 116/83; PULSE 96; RESP 18; TEMP 98.9; O2SAT 99
--- NOTE | 2025-07-22 10:30 | DVHPN2 ---
Subjective The patient seen and examined at bedside. The patient has no seizure today. Reviewed: Care Plan, H&P, Labs, Medications, Previous Orders, Radiology Changes from previous H/P or p: No Changes Objective Vitals Vital Signs Date Time Temp Pulse Resp B/P (MAP) Pulse Ox O2 Delivery O2 Flow Rate FiO2 07/22/25 08:00 100 18 96 Room Air* 0 21 07/22/25 05:00 98.1 103/53 (70) 98.1 Intake/Output Intake and Output 07/22/25 07:00 Intake Total 1470 ml Output Total 800 ml Balance 670 ml Intake Oral 1200 ml IV Total 270 ml Output Urine Total 800 ml # Voids 10 General Appearance: Alert, Cooperative, mild distress HEENT: Atraumatic, PERRLA, EOMI, Mucous membr. moist/pink Neck: Supple Lungs: Clear to auscultation, Normal air movement Cardiovascular: Regular rate, Normal S1, Normal S2, No murmurs, Gallops, Rubs Abdomen: Normal bowel sounds, Soft, No tenderness Neuro: Cranial nerves 3-12 NL Psych/Mental Status: Mental status NL Medications Current Medications Medications Dose Ordered Sig/Nayan Route Start Time Stop Time Status Last Admin Dose Admin Lorazepam 1 mg Q5MINP PRN IV 07/21/25 03:45 Ondansetron HCl 4 mg Q4HP PRN IV 07/21/25 03:45 Acetaminophen 650 mg Q6HP PRN PO 07/21/25 03:45 07/21/25 08:59 650 MG Levetiracetam 500 mg BID PO 07/21/25 10:00 07/22/25 09:26 500 MG Olanzapine 10 mg DAILY PO 07/21/25 10:00 07/22/25 09:26 10 MG Phenytoin Sodium 300 mg HS PO 07/21/25 22:00 07/21/25 22:22 300 MG Laboratory Results Laboratory Tests 07/20/25 22:08 07/21/25 08:44 Urinalysis Test 07/20/25 22:17 Urine Color Colorless (Yellow) Urine Clarity Clear (Clear) Urine pH 5.5 (5.0-9.0) Urine Specific [place] 1.008 (1.001-1.035) Urine Protein 1+ (Negative) H Urine Ketones Negative (Negative) Urine Blood Trace /uL (Negative) H Urine Nitrite Negative (Negative) Urine Bilirubin Negative (Negative) Urine Urobilinogen Normal mg/dL (Negative) Urine Leukocyte Esterase Negative /uL (Negative) Urine RBC 1 /hpf (0 - 3) Urine Microscopic WBC 2 /HPF (0-3) Urine Squamous Epithelial Cells None seen /hpf (<5) Urine Bacteria None seen /hpf (None Seen) Urine Hyaline Casts Few /lpf (0 - 2) Urine Sperm Present /hpf (None Seen) Urine Glucose Normal mg/dL (Normal) Labs and/or images reviewed: Labs reviewed by me Assessment/Plan Assessment/Plan Breakthrough seizure Polysubstance abuse Medical noncompliance. Continue current management Continue keppra Waiting for neurology to see the patient Advise to stop using recreation drug more than 15 minutes Plan discussed with: Patient My Orders Orders - CATHY MONTALVO MD Procedure Category Date Status Time Mrsa Screen ИРИНА 07/21/25 In Process 17:12 Date of Service: Jul 22, 2025 Billing Provider: CATHY MONTALVO MD Common Visit Codes: [id number] INP/OBS CARE(HIGH) CATHY MONTALVO MD Jul 22, 2025 10:30
[2025-07-22 13:00] VITALS: BP 126/90; PULSE 94; RESP 19; TEMP 98.6; O2SAT 100
[2025-07-22 16:41] VITALS: BP 116/64; PULSE 86; RESP 17; TEMP 98.6; O2SAT 97
--- NOTE | 2025-07-23 10:02 | DVHDS2 ---
Discharge Summary Date of Admission Jul 21, 2025 at 03:32 Date of Discharge: Jul 22, 2025 Admitting Diagnosis Breakthrough seizure Polysubstance abuse Medical noncompliance. Labs/Diagnostic Data: Laboratory Results Test 07/22/25 10:25 07/21/25 08:44 07/21/25 08:23 07/20/25 22:17 Phenytoin (Dilantin) Level 13.5 ug/mL (10-20) Sodium Level 141 mmol/L (136-145) Potassium Level 3.3 mmol/L (3.5-5.1) Chloride Level 103 mmol/L (98-107) Carbon Dioxide Level 26 mmol/L (20-31) Anion Gap 12 (5-15) Blood Urea Nitrogen 9 mg/dL (9-23) Creatinine 1.12 mg/dL (0.700-1.30) Glomerular Filtration Rate Calc 91 mL/min (>90) BUN/Creatinine Ratio 8.0 (10.0-20.0) Serum Glucose 99 mg/dL (74-106) Calcium Level 9.3 mg/dL (8.7-10.4) Total Bilirubin 0.4 mg/dL (0.2-1.0) Aspartate Amino Transferase (AST) 64 U/L (13-40) Alanine Aminotransferase (ALT) 49 U/L (7-40) Alkaline Phosphatase 48 U/L (46-116) Total Protein 6.8 g/dL (5.7-8.2) Albumin 4.3 g/dL (3.2-4.8) POC Glucose 112 mg/dl (70-106) Urine Color Colorless (Yellow) Urine Clarity Clear (Clear) Urine pH 5.5 (5.0-9.0) Urine Specific Center Line 1.008 (1.001-1.035) Urine Protein 1+ (Negative) Urine Ketones Negative (Negative) Urine Blood Trace /uL (Negative) Urine Nitrite Negative (Negative) Urine Bilirubin Negative (Negative) Urine Urobilinogen Normal mg/dL (Negative) Urine Leukocyte Esterase Negative /uL (Negative) Urine RBC 1 /hpf (0 - 3) Urine Microscopic WBC 2 /HPF (0-3) Urine Squamous Epithelial Cells None seen /hpf (<5) Urine Bacteria None seen /hpf (None Seen) Urine Hyaline Casts Few /lpf (0 - 2) Urine Sperm Present /hpf (None Seen) Urine Glucose Normal mg/dL (Normal) Urine Opiates Screen Neg (NEGATIVE) Urine Fentanyl Screen Neg (NEGATIVE) Urine Barbiturates Screen Neg (NEGATIVE) Urine Phencyclidine Screen Neg (NEGATIVE) Urine Amphetamines Screen Pos (NEGATIVE) Urine Benzodiazepines Screen Neg (NEGATIVE) Urine Cocaine Screen Neg (NEGATIVE) Urine Cannabinoids Screen Pos (NEGATIVE) Test 07/20/25 22:08 White Blood Count 15.3 10^3/uL (4.4-10.8) Red Blood Count 4.81 10^6/uL (4.5-5.90) Hemoglobin 15.0 g/dL (13.5-17.5) Hematocrit 46.1 % (41.0-53.0) Mean Corpuscular Volume 95.8 fL (80.0-100.0) Mean Corpuscular Hemoglobin 31.2 pg (28.0-32.0) Mean Corpuscular Hemoglobin Concent 32.6 g/dL (32.0-36.0) Red Cell Distribution Width 16.2 % (11.8-14.3) Platelet Count 389 10^3/uL (140-450) Mean Platelet Volume 8.4 fL (6.9-10.8) Neutrophils (%) (Auto) 73.4 % (37.0-80.0) Lymphocytes (%) (Auto) 15.4 % (10.0-50.0) Monocytes (%) (Auto) 11.1 % (0.0-12.0) Eosinophils (%) (Auto) 0.0 % (0.0-7.0) Basophils (%) (Auto) 0.1 % (0.0-2.0) Neutrophils # (Auto) 11.2 10 ^3/uL (1.6-8.6) Lymphocytes # (Auto) 2.4 10 ^3/uL (0.4-5.4) Monocytes # (Auto) 1.7 10 ^3/uL (0-1.3) Eosinophils # (Auto) 0 10 ^3/uL (0-0.8) Basophils # (Auto) 0 10 ^3/uL (0-0.2) Nucleated Red Blood Cells 0.4 % Troponin I High Sensitivity 44 ng/L (</=54) Other Laboratory Tests 07/21/25 08:44 07/20/25 22:08 Brief Hx & Hospital Course: This is a 30 years old male with history of seizure come in because active seizure activity at home. The patient had another witness seizure in the hospital. The patient has postictal. The patient complained of frontal headache. The patient was admitted and was put on Keppra 500 mg IV twice per day. The patient did not have any seizure activity in the hospital. The patient is waiting for EEG and neurologist to see him but he grew inpatient and left against medical advice. Patient does have history of recurrent seizure because of noncompliant and drug use. The patient usually left against medical advice and/or not taking medication at home and had seizure. The patient verbally understands if he leave this time he continuing to have seizure and even worse maybe but he is still wanted to leave against medical advice. Physical exam: This was done prior to the patient signed out against medical advice HEENT: Normocephalic atraumatic pupils equal react to light and accommodation. Extraocular muscles intact, conjunctiva pink, oropharynx moist, no thrush, no exudate. Lymphatic: No lymphadenopathy Cardiovascular exam: S1, S2 was heard. No murmurs, rubs, gallops Lung: Clear on auscultation bilaterally, no wheeze, rale, rhonchi. GI: Abdominal soft, nondistended, nontenderness, positive bowel sounds. Extremity: No crepitus, cyanosis, edema. Pedal pulses present bilateral. Full range of motion. Skin: Normal turgor, no rash. Psych: Alert, oriented x3. Neurology: No focal deficits, cranial nerve II to XII grossly intact. This medical document was created using an electronic medical record system with [employer] direct computerized dictation system. Although this document has been carefully reviewed, there may still be some phonetic and typographical errors. These areas are purely typographical due to imperfections of the software programs, and do not reflect any compromise in the patient's medical care. Condition at Discharge: Guarded Final Diagnosis/Problems List Breakthrough seizure Polysubstance abuse Medical noncompliance. Discharge Disposition: AMA Discharge Instruct/Medications Scheduled Levetiracetam (Keppra), 500 MG PO TID, (Reported) Phenytoin Sodium (Dilantin Capsule), 100 MG PO DAILY, (Reported) Discharge Statement: "Patient was advised to return to the ER or call 911 if any headaches, dizziness, shortness of breath, chest pain, abdominal pain, bleeding, fevers, or worsening of medical condition. Patient was counseled about treatment plan, medications, possible side effects, patientverbalized understanding. All questions were answered to the best of my ability. This discharge took greater then 30 minutes in planning, reviewing documentation, counseling the patient, and discussing with other team members." ASSESSMENT ASSESSMENT Assessment Date of Service: Jul 22, 2025 Billing Provider: CATHY MONTALVO MD Common Visit Codes: 45504-PVR/OBS DISCH DAY >30min CATHY MONTALVO MD Jul 23, 2025 10:02
--- NOTE | 2025-07-24 10:43 | DVHPN2 ---
Date of Service: Jul 22, 2025 Billing Provider: CATHY MONTALVO MD Common Visit Codes: 72319-GSG/OBS DISCH DAY >30min CATHY MONTALVO MD Jul 24, 2025 10:43
== END 2025-07-22 20:00 | disposition left against medical advice (07) | DRG 53 ==
LOC: ER 21:28 → OVERFLOW 07-21 03:32 → WEST WING 07-21 15:00
PROVIDERS: ADMIT Internal Medicine; ATTEND Internal Medicine
DX: G40.401 Other generalized epilepsy and epileptic syndromes, not intractable, with status epilepticus (principal); F19.10 Other psychoactive substance abuse, uncomplicated; Z53.29 Procedure and treatment not carried out because of patient's decision for other reasons; Z79.899 Other long term (current) drug therapy; Z91.199 Patient's noncompliance with other medical treatment and regimen due to unspecified reason
CPT/HCPCS: 36415; 70450; 80053; 80185; 80307; 81001; 82962; 84484; 85025; 87081; G0378